=== PATIENT | female | born 1995 | race Caucasian/White ===

== ENCOUNTER 2019-07-03 11:31 | Emergency (ER) | payer OTHER ==
[~2019-07-03] VITALS: Ht 162.6 cm; Wt 88.6 kg
[2019-07-03 11:31] VITALS: BP 144/89
[2019-07-03] MEDS ORDERED: BACT800T5 PO (12:28)
[2019-07-03] MEDS ORDERED: PYRI1TAB5 PO (12:28)
== END 2019-07-03 12:35 | disposition home or self-care (01) ==
LOC: M ED 11:31
DX: N39.0 Urinary tract infection, site not specified (principal)

== ENCOUNTER 2019-09-07 11:53 | Emergency (ER) | payer OTHER, SELFPAY ==
[~2019-09-07] VITALS: Ht 162.6 cm; Wt 93.1 kg
[~2019-09-07 11:53] MED LIST: BACT800T5 PO; PYRI1TAB5 PO
[2019-09-07] MEDS ORDERED: cbd gummies (11:59)
[2019-09-07 13:05] LABS: BASO % 0.6 % (0.0-1.0); EOS # 0.1 10^3/uL (0.0-0.5); EOS % 1.5 % (0.0-3.0); HEMATOCRIT 39.8 % (36.0-47.0); HEMOGLOBIN 13.2 g/dl (12.0-15.5); LYMPH # 1.5 10^3/uL (1.5-5.0); LYMPH % 20.6 % (24.0-44.0); MEAN CORPUSCULAR HEMOGLOBIN 30.2 pg (27.0-33.0); MEAN CORPUSCULAR HGB CONC 33.2 g/dl (32.0-36.5); MEAN CORPUSCULAR VOLUME 91.1 fl (80.0-96.0); MONO # 0.3 10^3/uL (0.0-0.8); NEUTROPHILS # 5.3 10^3/uL (1.5-8.5); PLATELET COUNT, AUTOMATED 301 10^3/uL (150-450); RED BLOOD COUNT 4.37 10^6/uL (4.00-5.40); WHITE BLOOD COUNT 7.2 10^3/uL (4.0-10.0)
[2019-09-07 13:21] LABS: BILIRUBIN,DIRECT 0.1 MG/DL (0.0-0.2); BILIRUBIN,TOTAL 0.5 MG/DL (0.2-1.0); TOTAL PROTEIN 7.4 GM/DL (6.4-8.2)
[2019-09-07 14:20] VITALS: BP 126/81
== END 2019-09-07 14:22 | disposition home or self-care (01) ==
LOC: M ED 11:53
DX: Z32.00 Encounter for pregnancy test, result unknown (principal); R11.2 Nausea with vomiting, unspecified; F43.10 Post-traumatic stress disorder, unspecified; Z87.42 Personal history of other diseases of the female genital tract

== ENCOUNTER → 2019-09-09 | Outpatient (CLI) | payer MEDICAID, SELFPAY ==
[~2019-09-09] MED LIST changes: +cbd gummies
== END ==
LOC: M LAB 11:37
PROVIDERS: ATTEND Obstetrics & Gynecology
DX: Z34.90 Encounter for supervision of normal pregnancy, unspecified, unspecified trimester (principal)

== ENCOUNTER → 2019-10-02 | Outpatient (REF) | payer OTHER ==
[2019-10-02 13:24] LABS: HEMATOCRIT 36.7 % (36.0-47.0); HEMOGLOBIN 12.3 g/dl (12.0-15.5); MEAN CORPUSCULAR HEMOGLOBIN 30.4 pg (27.0-33.0); MEAN CORPUSCULAR HGB CONC 33.5 g/dl (32.0-36.5); MEAN CORPUSCULAR VOLUME 90.8 fl (80.0-96.0); PLATELET COUNT, AUTOMATED 269 10^3/uL (150-450); RED BLOOD COUNT 4.04 10^6/uL (4.00-5.40); WHITE BLOOD COUNT 7.2 10^3/uL (4.0-10.0)
[2019-10-02 13:54] LABS: ALT/SGPT 19 U/L (12-78); BILIRUBIN,TOTAL 0.6 MG/DL (0.2-1.0); CREATININE FOR GFR 0.61 MG/DL (0.55-1.30); GLOMERULAR FILTRATION RATE > 60.0 (>60); LDH LACTATE DEHYDROGENASE 132 U/L (84-246); TOTAL PROTEIN,RANDOM URINE 17.1 MG/DL (0.0-12.0); URIC ACID 3.1 MG/DL (2.6-6.0)
[2019-10-02 14:15] LABS: RUBELLA IgG QUALITATIVE IMMUNE (IMMUNE)
[2019-10-02 14:16] LABS: HEPATITIS B SURFACE ANTIGEN NEGATIVE (NEGATIVE)
[2019-10-02 14:43] LABS: HEPATITIS C VIRUS ABY INDEX 0.2 INDEX (<0.8)
[2019-10-02 14:44] LABS: HIV 1&2 SCREEN CENTAUR NEGATIVE (NEGATIVE)
== END ==
LOC: M PLALAB 09:17
PROVIDERS: ATTEND Obstetrics & Gynecology
DX: O09.291 Supervision of pregnancy with other poor reproductive or obstetric history, first trimester (principal)

== ENCOUNTER 2019-10-24 14:49 | Emergency (ER) | payer OTHER ==
[~2019-10-24] VITALS: Ht 162.6 cm; Wt 95.7 kg
[2019-10-24] MEDS ORDERED: PREN29TA4 PO (15:01)
[2019-10-24] MEDS ORDERED: PENI1TAB17 (15:01)
[2019-10-24] MEDS ORDERED: AZO1CAP2 PO (15:01)
[2019-10-24] MEDS ORDERED: MACR100C43 PO (16:38)
[2019-10-24 16:46] VITALS: BP 116/76
[2019-10-24 17:22] LABS: CHLAMYDIA DNA AMPLIFICATION NEGATIVE (NEGATIVE); GC DNA AMPLIFICATION NEGATIVE (NEGATIVE)
== END 2019-10-24 16:57 | disposition home or self-care (01) ==
LOC: M ED 14:49
DX: O23.41 Unspecified infection of urinary tract in pregnancy, first trimester (principal); Z3A.10 10 weeks gestation of pregnancy; R10.2 Pelvic and perineal pain

== ENCOUNTER → 2019-11-14 | Outpatient (CLI) | payer OTHER ==
[~2019-11-14] MED LIST changes: +AZO1CAP2 PO; +MACR100C43 PO; +PENI1TAB17; +PREN29TA4 PO
== END ==
LOC: M PLALAB 15:18
PROVIDERS: ATTEND Advanced Practice Midwife
DX: Z13.79 Encounter for other screening for genetic and chromosomal anomalies (principal)

== ENCOUNTER → 2020-01-17 | Outpatient (CLI) | payer OTHER ==
--- NOTE | 2020-01-17 15:28 | REP ---
REASON: anatomy. There are no priors for comparison. Multiple ultrasonographic images of the gravid uterus show a single living intrauterine gestation in the cephalic presentation. Doppler interrogation of the heart shows a heart rate of 149 beats per minute. The placenta is posterior and not low-lying. The subjective amniotic fluid volume is within normal limits. The cervix measures 3.6 cm in length and is closed. Evaluation of the maternal adnexal spaces should no abnormalities. BPD 5 cm = 21 weeks 1 day HC 19.9 cm = 22 weeks 0 days AC 17.2 cm = 23 weeks 1 day FL 4.0 cm = 22 weeks 6 days The estimated weight is 500 grams, which is at the 58th percentile for a 50-zyjn-6-day gestational age. anatomical structures seen to be within normal limits are as follows: Thalami, cavum septum pellucidum, cerebellum, cisterna magna, cerebral ventricles, upper lip, four-chamber heart, ventricular outflow tracts, stomach, cord insertion, three-vessel umbilical cord, kidneys, bladder, spine, upper and lower extremities. IMPRESSION: Single living intrauterine gestation as described above with an estimated gestational age of 22 weeks 0 days via composite criteria and an estimated date of delivery of 05/22/2020 by today's exam. No anomalies were detected.
[2020-01-17 20:43] LABS: CHLAMYDIA DNA AMPLIFICATION NEGATIVE (NEGATIVE); GC DNA AMPLIFICATION NEGATIVE (NEGATIVE)
== END ==
LOC: M WHC 08:21
PROVIDERS: ATTEND Advanced Practice Midwife
DX: O09.299 Supervision of pregnancy with other poor reproductive or obstetric history, unspecified trimester (principal); Z3A.22 22 weeks gestation of pregnancy

== ENCOUNTER 2020-02-16 11:11 | Emergency (ER) | payer OTHER ==
[2020-02-16] MEDS ORDERED: NORCO, ANEXSIA 5/325MG TABLET (HYDROcodone/ACETAMINOPHEN) As Ordered ONE ×2 (12:08→12:53)
== END 2020-02-16 13:55 | disposition home or self-care (01) ==
LOC: M ED 11:11
DX: O9A.212 Injury, poisoning and certain other consequences of external causes complicating pregnancy, second trimester (principal); S83.005A Unspecified dislocation of left patella, initial encounter; W01.0XXA Fall on same level from slipping, tripping and stumbling without subsequent striking against object, initial encounter; Y99.0 Civilian activity done for income or pay; Z3A.26 26 weeks gestation of pregnancy; Z79.899 Other long term (current) drug therapy

== ENCOUNTER → 2020-03-19 | Outpatient (CLI) | payer OTHER ==
[2020-03-19 15:25] LABS: HEMATOCRIT 30.9 % (36.0-47.0); HEMOGLOBIN 10.3 g/dl (12.0-15.5); MEAN CORPUSCULAR HEMOGLOBIN 29.9 pg (27.0-33.0); MEAN CORPUSCULAR HGB CONC 33.3 g/dl (32.0-36.5); MEAN CORPUSCULAR VOLUME 89.6 fl (80.0-96.0); PLATELET COUNT, AUTOMATED 221 10^3/uL (150-450); RED BLOOD COUNT 3.45 10^6/uL (4.00-5.40)
== END ==
LOC: M PLALAB 11:08
PROVIDERS: ATTEND Advanced Practice Midwife
DX: Z34.93 Encounter for supervision of normal pregnancy, unspecified, third trimester (principal); Z3A.00 Weeks of gestation of pregnancy not specified

== ENCOUNTER 2020-04-02 00:13 | Outpatient (CLI) | payer OTHER | END 2020-04-02 01:15 | disposition home or self-care (01) | LOC: M LDO 00:13 | PROVIDERS: ATTEND Advanced Practice Midwife | DX: O26.893 Other specified pregnancy related conditions, third trimester (principal); Z3A.32 32 weeks gestation of pregnancy ==

== ENCOUNTER 2020-08-27 07:45 | Outpatient (RCR) | payer OTHER | END 2020-08-30 | LOC: M PT 07:45 | PROVIDERS: ATTEND Orthopaedic Surgery Sports Medicine | DX: S83.005D Unspecified dislocation of left patella, subsequent encounter (principal) ==

== ENCOUNTER 2020-09-15 07:45 | Outpatient (RCR) | payer OTHER | END 2020-09-30 | LOC: M PT 07:45 | PROVIDERS: ATTEND Orthopaedic Surgery Sports Medicine | DX: S83.005D Unspecified dislocation of left patella, subsequent encounter (principal) ==

== ENCOUNTER → 2020-10-25 | Outpatient (CLI) | payer OTHER ==
[~2020-10-25] MED LIST changes: +COLA100C5 PO; +IBUP1TAB7 PO; +OXYC1TAB23 PO
== END ==
LOC: M LABSMTC 08:46
PROVIDERS: ATTEND Anesthesiology
DX: Z01.812 Encounter for preprocedural laboratory examination (principal)

== ENCOUNTER 2020-10-30 13:42 | Day surgery (SDC) | payer OTHER ==
[~2020-10-30] VITALS: Ht 162.6 cm; Wt 117.4 kg
[~2020-10-30 13:42] MED LIST changes: -COLA100C5 PO; -IBUP1TAB7 PO; +LIDOCAINE 1% MDV 20ML VIAL SQ PRN; +LR 1,000 ML IV ONE; -OXYC1TAB23 PO
[2020-10-30 14:20] LABS: HEMATOCRIT 39.4 % (36.0-47.0); HEMOGLOBIN 12.7 g/dl (12.0-15.5); MEAN CORPUSCULAR HEMOGLOBIN 28.7 pg (27.0-33.0); MEAN CORPUSCULAR HGB CONC 32.2 g/dl (32.0-36.5); MEAN CORPUSCULAR VOLUME 89.1 fl (80.0-96.0); PLATELET COUNT, AUTOMATED 308 10^3/uL (150-450); RED BLOOD COUNT 4.42 10^6/uL (4.00-5.40); WHITE BLOOD COUNT 6.9 10^3/uL (4.0-10.0)
[2020-10-30] MEDS ORDERED: KETOROLAC 60MG 2ML VIAL As Ordered ONE (14:27)
[2020-10-30] MEDS ORDERED: propofoL 200 MG/20 ML VIAL As Ordered ONE (14:27)
[2020-10-30] MEDS ORDERED: ONDANSETRON 4MG/2ML VIAL As Ordered ONE (14:27)
[2020-10-30] MEDS ORDERED: MIDAZOLAM INJ 2MG/2ML VIAL (J2250 PER 1MG) As Ordered ONE (14:27)
[2020-10-30] MEDS ORDERED: fentaNYL 100 MCG/2 ML INJECTION (J3010) As Ordered ONE ×3 (14:27→17:21)
[2020-10-30] MEDS ORDERED: LIDOCAINE 2% 100MG/5ML SDV (FOR ANES.) As Ordered ONE (14:27)
[2020-10-30] MEDS ORDERED: ROCURONIUM BROMIDE 50 MG/5 ML VIAL As Ordered ONE (14:27)
[2020-10-30] MEDS ORDERED: ACETAMINOPHEN 1000MG 100ML IV BTL (OFIRMEV) (J0131 PER 10MG) As Ordered ONE (14:27)
[2020-10-30] MEDS ORDERED: dexameTHASONE 4 MG/ML 1ML VIAL (J1100 PER 1MG) As Ordered ONE ×2 (14:27→14:28)
[2020-10-30] MEDS ORDERED: SUGAMMADEX SODIUM 500 MG/5 ML VIAL (BRIDION) As Ordered ONE (14:27)
[2020-10-30 14:44] LABS: HCG, SERUM QUALITATIVE NEGATIVE (NEGATIVE)
[2020-10-30] MEDS ORDERED: BUPIVACAINE HCL 0.25% 10ML VIAL As Ordered ONE (15:21)
[2020-10-30] MEDS ORDERED: OXYC1TAB23 PO (17:02)
--- NOTE | 2020-10-30 17:02 | ROOPDOC ---
[facility] Report Of Operation Report of Operation Date of procedure: 10/30/2020 Preoperative diagnosis: Satisfied parity. Postoperative diagnosis: Same Procedure: Laparoscopic bilateral salpingectomy Anesthesia: Gen. endotracheal Estimated blood loss 5 mL IV fluids replaced 1000 mL lactated Ringer's Drains: In and out catheter 25 mL of urine Complications: None Preoperative antibiotics: None indicated Specimens: Bilateral fallopian tubes Intraoperative findings: Normal size, shape, contour of the uterus. Normal adnexa/ovaries bilaterally. Procedure: The patient was counseled and consented on the risks, benefits, indications, and alternatives of the procedure. Informed consent was obtained. She was taken to the operating room with an IV running. She was placed on the operating table in the dorsal supine position. Gen. anesthesia was administered and the airway was secured without any difficulty. A timeout was performed per protocol. She was prepared and draped in the normal sterile fashion. Attention was turned to the pelvis. The bladder was drained with in and out sterile catheter. A speculum was placed into the vagina with good visualization of the cervix. A single- tooth tenaculum was placed on the anterior lip of the cervix and downward traction was applied. The cervix was sequentially dilated with Juan dilators up to a #16. A ZUMI uterine manipulator was placed without any difficulty. The single-tooth tenaculum was removed. The tenaculum sites were noted to be hemostatic. A sterile glove switch was performed. Attention was turned to the abdomen. A 5mm umbilical incision was made with the 11 blade. Through this incision, a Veress needle was placed into the intraperitoneal cavity. Intraperitoneal placement was confirmed with ease of flow of normal saline, a positive drop test and no return on aspiration. The opening pressure was 2 mmHg. The abdomen was insufflated with 2 L of CO2. The Veress needle was removed. A 5 mm laparoscopic trocar was placed under direct visualization without any difficulty, and intraperitoneal placement was confirmed. No incidental bleeding or injury was evident. The patient was placed in steep Trendelenburg. 2 additional laparoscopic port sites were placed through 5 mm incisions in the lower left quadrant. Each trocar/cannula was placed under direct visualization without any difficulty, incidental bleeding or injury. Attention was turned to the right fallopian tube. The right fallopian tube was followed out to the fimbriated end, grasped and elevated. The underlying mesosalpinx was sequentially clamped, coagulated and transected, until the level of the cornu was reached. At this level, the fallopian tube was clamped, coagulated and transected, thus amputating the fallopian tube. The fallopian tube was brought through the cannula without any difficulty and sent to pathology for permanent section. Attention was turned to the left fallopian tube. The left fallopian tube was followed out to the fimbriated end, grasped and elevated. The underlying mesosalpinx was sequentially clamped, coagulated and transected, until the level of the cornu was reached. At this level the fallopian tube was clamped, coagulated and transected, thus amputating the fallopian tube. The fallopian tube was brought to the cannula without any difficulty and sent to pathology for permanent section. Both right and left surgical sites were noted to be completely hemostatic. The gas was released from the abdomen. The patient was taken out of Trendelenburg position. The cannulas were removed. The skin incisions were closed with 4-0 Monocryl in subcuticular fashion and reinforced with Dermabond. The uterine manipulator was removed, the vagina was noted to be clear of any sponge or instrument. Sponge, needle and instrument counts were correct per protocol. The patient tolerated the entire procedure very well. She was transferred to the PACU in good and stable condition. DO MILKA Eaton JONATHAN R. DO Oct 30, 2020 17:02
[2020-10-30] MEDS ORDERED: IBUP1TAB7 PO (17:03)
[2020-10-30] MEDS ORDERED: COLA100C5 PO (17:04)
[2020-10-30] MEDS: fentaNYL 100 MCG/2 ML INJECTION (J3010) IV PRN ×2 (17:22→17:27)
[2020-10-30] MEDS ORDERED: LR 1,000 ML IV SCH ×2 (17:40→17:50)
[2020-10-30] MEDS ORDERED: METOCLOPRAMIDE INJ 10MG/2ML VIAL (J2765 PER 1) IV PRN (17:50)
[2020-10-30] MEDS ORDERED: oxyCODONE 5MG TAB PO PRN (17:50)
[2020-10-30] MEDS ORDERED: ONDANSETRON 4MG/2ML VIAL IV PRN (17:50)
[2020-10-30] MEDS ORDERED: HYDROMORPHONE HCL 0.5 MG/ 0.5 ML SYRINGE (J1170 PER 1) IV PRN (17:50)
[2020-10-30 19:30] VITALS: BP 111/71
== END 2020-10-30 19:35 | disposition home or self-care (01) ==
LOC: M SDC 13:42
PROVIDERS: ATTEND Obstetrics & Gynecology
DX: Z30.2 Encounter for sterilization (principal); Z79.899 Other long term (current) drug therapy
CPT/HCPCS: 36415; 58661; 84703; 85027; 86850; 86900; 86901; 88302; J0131; J1100; J1885; J2250; J2405; J3010

== ENCOUNTER 2021-05-09 13:35 | Emergency (ER) | payer OTHER ==
[~2021-05-09] VITALS: Ht 162.6 cm; Wt 129.6 kg
[~2021-05-09 13:35] MED LIST changes: +COLA100C5 PO; +IBUP1TAB7 PO; -LIDOCAINE 1% MDV 20ML VIAL SQ PRN; -LR 1,000 ML IV ONE; +OXYC1TAB23 PO
[2021-05-09] MEDS ORDERED: AZO-95TA3 PO (13:39)
--- OUTSIDE RECORDS SUMMARY | 2021-05-09 13:53 | CCD ---
Author Author [facility] Organization [facility] Address Unknown Phone Unavailable Care Team Providers Care Pilot Fuel Engineer Name Role Phone NO, PCP Unavailable Unavailable MD EZEKIEL LARRY Unavailable Unavailable MD CHICHI LARRYAH Unavailable Unavailable MD EZEKIEL LARRY Unavailable Unavailable MD EZEKIEL LARRY Unavailable Unavailable MD CHICHI LARRYAH Unavailable Unavailable MD CHICHI LARRYAH Unavailable Unavailable MD CHICHI LARRYAH Unavailable Unavailable MD CHICHI LARRYAH Unavailable Unavailable MD CHICHI LARRYAH Unavailable Unavailable MD CHICHI LARRYAH Unavailable Unavailable MD EZEKIEL LARRY Unavailable Unavailable MD EZEKIEL LARRY Unavailable Unavailable MD EZEKIEL LARRY Unavailable Unavailable MD EZEKIEL LARRY Unavailable Unavailable MD EZEKIEL LARRY Unavailable Unavailable MD EZEKIEL LARRY Unavailable Unavailable MD EZEKIEL LARRY Unavailable Unavailable MD EZEKIEL LARRY Unavailable Unavailable MD EZEKIEL LARRY Unavailable Unavailable MD EZEKIEL LARRY Unavailable Unavailable MD EZEKIEL LARRY Unavailable Unavailable MD CHICHI LARRYAH Unavailable Unavailable MD CHICHI LARRYAH Unavailable Unavailable MD CHICHI LARRYAH Unavailable Unavailable MD EZEKIEL LARRY Unavailable Unavailable MD CHICHI LARRYAH Unavailable Unavailable MD CHICHI LARRYAH Unavailable Unavailable MD CHICHI LARRYAH Unavailable Unavailable MD CHICHI LARRYAH Unavailable Unavailable Mollison, Anaya Rosado MD Unavailable Unavailable Mollison, Anaya Rosado MD Unavailable Unavailable Mollison, Anaya Rosado MD Unavailable Unavailable Mollison, Anaya Rosado MD Unavailable Unavailable Mollison, Anaya oRsado MD Unavailable Unavailable Mollison, Anaya Rosado MD Unavailable Unavailable Mollison, Anaya Rosado MD Unavailable Unavailable Mollison, Anaya Rosado MD Unavailable Unavailable Mollison, Anaya Rosado MD Unavailable Unavailable Mollison, Anaya Rosado MD Unavailable Unavailable Mollison, Anaya Rosado MD Unavailable Unavailable Mollison, Anaya Rosado MD Unavailable Unavailable Mollison, Anaya Rosado MD Unavailable Unavailable Mollison, Anaya Rosado MD Unavailable Unavailable Mollison, Anaya Rosado MD Unavailable Unavailable Mollison, Anaya Rosado MD Unavailable Unavailable Mollison, Anaya Rosado MD Unavailable Unavailable Mollison, Anaya Rosado MD Unavailable Unavailable Mollison, Anaya Rosado MD Unavailable Unavailable Mollison, Anaya Rosado MD Unavailable Unavailable Mollison, Anaya Rosado MD Unavailable Unavailable Mollison, Anaya Rosado MD Unavailable Unavailable MollisonAnaya MD Unavailable Unavailable Mollison, Anaya Rosado MD Unavailable Unavailable Mollison, Anaya Rosado MD Unavailable Unavailable MollisonAnaya MD Unavailable Unavailable Mollison, Anaya Rosado MD Unavailable Unavailable Mollison, Anaya Rosado MD Unavailable Unavailable Mollison, Anaya Rosado MD Unavailable Unavailable Mollison, Anaya Rosado MD Unavailable Unavailable Abel CARRINGTON Unavailable Unavailable MD CHICHI LARRYAH Unavailable Unavailable MD EZEKIEL LARRY Unavailable Unavailable MD EZEKIEL LARRY Unavailable Unavailable MD CHICHI LARRYAH Unavailable Unavailable MD CHICHI LARRYAH Unavailable Unavailable MD CHICHI LARRYAH Unavailable Unavailable MD CHICHI LARRYAH Unavailable Unavailable MD CHICHI LARRYAH Unavailable Unavailable MD CHICHI LARRYAH Unavailable Unavailable MD EZEKIEL LARRY Unavailable Unavailable MD CHICHI LARRYAH Unavailable Unavailable MD CHICHI LARRYAH Unavailable Unavailable MD CHICHI LARRYAH Unavailable Unavailable MD CHICHI LARRYAH Unavailable Unavailable MD EZEKIEL LARRY Unavailable Unavailable MD CHICHI LARRYAH Unavailable Unavailable MD EZEKIEL LARRY Unavailable Unavailable MD EZEKIEL LARRY Unavailable Unavailable MD CHICHI LARRYAH Unavailable Unavailable MD CHICHI LARRYAH Unavailable Unavailable MD CHICHI LARRYAH Unavailable Unavailable MD CHICHI LARRYAH Unavailable Unavailable MD EZEKIEL LARRY Unavailable Unavailable MD EZEKIEL LARRY Unavailable Unavailable MD EZEKIEL LARRY Unavailable Unavailable MD EZEKIEL LARRY Unavailable Unavailable MD EZEKIEL LARRY Unavailable Unavailable MD EZEKIEL LARRY Unavailable Unavailable MD EZEKIEL LARRY Unavailable Unavailable GINYARD, Shobha LEWIS MD Unavailable Unavailable GINYARD, Shobha LEWIS MD Unavailable Unavailable GINYARD, Shobha LEWIS MD Unavailable Unavailable GINYARD, Shobha LEWIS MD Unavailable Unavailable GINYARD, Shobha LEWIS MD Unavailable Unavailable GINYARD, Shobha LEWIS MD Unavailable Unavailable GINYARD, Shobha LEWIS MD Unavailable Unavailable GINYARD, Shobha LEWIS MD Unavailable Unavailable GINYARD, Shobha LEWIS MD Unavailable Unavailable GINYARD, Shobha LEWIS MD Unavailable Unavailable GINYARD, Shobha LEWIS MD Unavailable Unavailable GINYARD, Shobha LEWIS MD Unavailable Unavailable GINYARD, Shobha LEWIS MD Unavailable Unavailable GINYARD, Shobha LEWIS MD Unavailable Unavailable GINYARD, Shobha LEWIS MD Unavailable Unavailable GINYARD, Shobha LEWIS MD Unavailable Unavailable GINYARD, Shobha LEWIS MD Unavailable Unavailable GINYARD, Shobha LEIWS MD Unavailable Unavailable GINYARD, Shobha LEWIS MD Unavailable Unavailable GINYARD, Shobha LEWIS MD Unavailable Unavailable GINYARD, Shobha LEWIS MD Unavailable Unavailable GINYARD, Shobha LEWIS MD Unavailable Unavailable GINYARD, Shobha LEWIS MD Unavailable Unavailable GINYARD, Shobha LEWIS MD Unavailable Unavailable GINYARD, Shobha LEWIS MD Unavailable Unavailable GINYARD, Shobha LEWIS MD Unavailable Unavailable Re-disclosure Warning The records that you are about to access may contain information from federally-assisted alcohol or drug abuse programs. If such information is present, then the following federally mandated warning applies: This information has been disclosed to you from records protected by federal confidentiality rules (42 CFR part 2). The federal rules prohibit you from making any further disclosure of this information unless further disclosure is expressly permitted by the written consent of the person to whom it pertains or as otherwise permitted by 42 CFR part 2. A general authorization for the release of medical or other information is NOT sufficient for this purpose. The Federal rules restrict any use of the information to criminally investigate or prosecute any alcohol or drug abuse patient.The records that you are about to access may contain highly sensitive health information, the redisclosure of which is protected by Article 27-F of the [facility] Public Health law. If you continue you may have access to information: Regarding HIV / AIDS; Provided by facilities licensed or operated by the [facility] Office of Mental Health; or Provided by the [facility] Office for People With Developmental Disabilities. If such information is present, then the following [facility] mandated warning applies: This information has been disclosed to you from confidential records which are protected by state law. State law prohibits you from making any further disclosure of this information without the specific written consent of the person to whom it pertains, or as otherwise permitted by law. Any unauthorized further disclosure in violation of state law may result in a fine or [place] health [facility] sentence or both. A general authorization for the release of medical or other information is NOT sufficient authorization for further disc losure. Allergies and Adverse Reactions Type Description Substance Reaction Status Data Source(s ) No Known Drug Allergies No Known Drug Allergies [facility] Hospital Encounters Encounter Providers Location Date Indications Data Source(s ) Outpatient Attender: Alonzo Blanco/Gael/Satish/Re indl 01/08/2021 03:30:00 PM EDT [facility] ([facility]) Outpatient [address] [facility] [id number] 10/14/2020 12:00:00 AM EDT eCW1 ([facility]) Unknown [address] [facility] [address] 09/11/2020 12:00:00 AM EST eCW1 ([facility]) Outpatient Attender: Alonzo Blanco/Gael/Satish/Re indl 08/25/2020 02:00:00 PM EST [facility] ([facility]) Outpatient Attender: Alonzo Blanco/Gael/Satish/Re indl 07/20/2020 07:30:00 AM EST [facility] ([facility]) ([facility]) [facility] Est OB [address] [place] [address] 07/13/2020 12:00:00 AM EST eCW1 ([facility] hospital) Inpatient Attender: MD EZEKIEL LARRY 04/11/2020 09:34:47 P M EDT [facility] [place] [facility] Inpatient Attender: MD EZEKIEL LARRYAdmitter: MD EZEKIEL GRAVES 04/11/2020 08:27:00 PM EDT - 04/15/2020 12:31:00 PM EDT PRE-ECLAMPSIA W/SEVERE FEATURES [facility] PRE-ECLAMPSIA W/SEVERE FEATURES Patient discharged. Outpatient Attender: MD EZEKIEL LARRY 04/11/2020 08:27:00 P M EDT [facility] Outpatient Attender: DEBBIE ERVIN MDConsultant: PCP NO 04/06/2020 01:38:00 PM EDT - 04/06/2020 03:50:00 PM EDT [facility] Patient discharged. Outpatient Attender: ARTHUR CARRINGTONConsultant: PCP NO 03/03/2020 12:35:00 AM EDT - 03/03/2020 03:13:00 AM EDT [facility] Patient discharged. Medications Medication Brand Name Start Date Product Form Dose Route Admi nistrative Instructions Pharmacy Instructions Status Indications Reaction Description Data Source(s) No Active Medications 01/08/2021 12:00:00 AM EDT completed [facility] ([facility]) 600 mg 04/15/2020 12:00:00 AM EDT tablet 60 TAKE ONE TABLET BY MOUTH EVERY 6 HOURS TAKE ONE TABLET BY MOUTH EVERY 6 HOURS SOLD: 04/15/2020 [facility] 100 mg 04/15/2020 12:00:00 AM EDT capsule 60 TAKE ONE CAPSULE BY MOUTH TWICE A DAY NEEDED FOR CONSTIPATION TAKE ONE CAPSULE BY MOUTH TWICE A DAY NEEDED FOR CONSTIPATION SOLD: 04/15/2020 [facility] 80 mg 04/15/2020 12:00:00 AM EDT tablet,chewable 60 CHEW ONE TABLET BY MOUTH THREE TIMES A DAY DURING MEAL CHEW ONE TABLET BY MOUTH THREE TIMES A D AY DURING MEAL SOLD: 04/15/2020 [facility] 500 mg 04/15/2020 12:00:00 AM EDT tablet 60 TAKE ONE TABLET BY MOUTH TWICE A DAY TAKE ONE TABLET BY MOUTH TWICE A DAY SOLD: 04/15/2020 [facility] 324 mg (65 mg iron) 04/15/2020 12:00:00 AM EDT tablet, delayed release (DR/EC) 90 TAKE ONE TABLET BY MOUTH THREE TIMES A D AY DURING A MEAL TAKE ONE TABLET BY MOUTH THREE TIMES A DAY DURING A MEAL SOLD: 04/15/2020 [facility] 0.35 mg 04/15/2020 12:00:00 AM EDT tablet 28 TAKE ONE TABLET BY MOUTH EVERY DAY TAKE ONE TABLET BY MOUTH EVERY DAY SOLD: 04/15/2020 [facility] 325 mg 04/15/2020 12:00:00 AM EDT tablet 60 TAKE THREE TABLETS BY MOUTH EVERY 6 HOURS NEEDED FOR PAIN TAKE THREE TABLETS BY MOUTH EVERY 6 HOUR S NEEDED FOR PAIN SOLD: 04/15/2020 [facility] Insurance Providers Payer name Policy type / Coverage type Policy ID Covered libertarian ID Covered libertarian's relationship to jeff Policy Jeff Plan Information CORBIN [id number] SP [id number] [place] [id number] SP [id number] MEMIC [place] 2010 SP 2010 ONE CALL CARE MANAGEMENT O [id number] S [id number] CORBIN I [id number] Self [id number] MEDICAID GME [id number] S [id number] CORBIN CARE HEA [id number] S [id number] [place]ARE [place] -OP [id number] 18 [id number] [place] [id number] SP [id number] [place] CARE [place] O [id number] S [id number] Managed Care [place] P UNAVAILABLE S UNAVAILABLE Medicaid S UNAVAILABLE S UNAVAILA BLE D Managed Care Why ([employer]) O UNAVAILABLE S UNAVAILABLE Medicaid Dental O UNAVAILABLE S UN AVAILABLE MEDICAID [id number] SP [id number] SELF PAY ONLY [id number] SP [id number] NCO EPALS [id number] SP [id number] Problems, Conditions, and Diagnoses Code Display Name Description Problem Type Effective Dates Data Source(s) [id number] 33 weeks gestation of 33 weeks gestation of Diagnosis 04/06/2020 01:38:00 PM EDT [facility] R519 Invalid ICD10 Description Invalid ICD10 Description Di agnosis 04/06/2020 01:38:00 PM EDT [facility] Surgeries/Procedures Procedure Description Date Indications Data Source(s) OFFICE OUTPATIENT VISIT 15 MINUTES 01/08/2021 12:00:00 AM EDT [facility] ([facility]) OFFICE OUTPATIENT VISIT 25 MINUTES 01/08/2021 12:00:00 AM EDT [facility] ([facility]) OFFICE OUTPATIENT VISIT 25 MINUTES 12/07/2020 12:00:00 AM EDT [facility] ([facility]) OFFICE OUTPATIENT VISIT 15 MINUTES 08/25/2020 12:00:00 AM EST [facility] ([facility]) OFFICE OUTPATIENT VISIT 15 MINUTES 07/20/2020 12:00:00 AM EST [facility] ([facility]) Results ID Date Data Source [id number] 10/25/2020 08:45:00 AM EDT [facility] Name Value Range Interpretation Code Description Data Camila rce(s) Supporting Document(s) SARS-CoV-2 (COVID-19) RNA [Presence] in Respiratory specimen by SOFI with probe detection Not Detected [facility] This lab was ordered by [facility] and reported by [facility]. ID Date Data Source [id number] 09/01/2020 04:15:00 PM EST [facility] Name Value Range Interpretation Code Description Data Camila rce(s) Supporting Document(s) SARS-CoV-2 NEGATIVE [facility] This lab was ordered by [facility] and reported by [facility]. ID Date Data Source [id number] 09/01/2020 12:00:00 AM EST [facility] Name Value Range Interpretation Code Description Data Camila rce(s) Supporting Document(s) SARS-CoV-2 RT-PCR negative [facility] This lab was ordered by [facility] and re ported by [facility]. ID Date Data Source [id number] 08/17/2020 12:00:00 AM EST [facility] Alonzo Ness MD Patient Name: GINI WYNNY[address] [facility] Date of : 1995[address] Date of Exam: 08/17/2020MOISE Smith [address]QN#: [phone]: EXAM: MRI KNEE LEFT WITHOUT CONTRASTCLINICAL INFORMATION: Prior patellar dislocation with possible loose bodyin the left knee.COMPARISON: X-ray 02/16/2020.Accredited by the [employer] in MR.TECHNIQUE: Osman nal PD and SPIR/MTC, sagittal PD and T2 SPIR and an axialSPIR/MTC sequence are performed.FINDINGS: Both the ACL and PCL show intact fibers along their course withno definite evidence for a tear. A small amount of fluid in theintercondylar notch and throughout the joint noted. Findings represent asmall joint effusion. There is some edema and trace fluid posterior to theposterior horn and deep to the capsule around the medial meniscus on thesagittal images. This may reflect a mild meniscocapsular injury. I do notsee linear intrasubstance signal tear in the medial meniscus, or a definiteloose body in the medial compartment. There is some minimal grade 1chondromalacia with surface fraying of the articular cartilage. Nosubjacent subchondral edema or bone bruise in the medial compartment.Medial collateral ligamentous complex without a definite tear. There isonly trace fluid about the medial head of the gastrocnemius in thepopliteal fossa. Some strain and attenuation of the lateral patellaretinaculum with increased signal superficial to it and within it. There isno subluxation of the patella. There is an elongated lateral patellar facetand some chondromalacia grade 2 lateral and medial facets. I do not see adefinite patellar fracture. There is a shallow trochlea and steeplyoriented medial patellar facet which may predispose to lateral subluxation.There is a small suprapatellar effusion and fluid into both medial andlateral bursal recessed about the femoral condyles. Synovial plica issuggested laterally and only trace fluid in the joint at the suprapatellarbursa. The lateral meniscus shows no definite tear communicating fromarticular surface nor intraarticular loose body in the lateral jointcompartment. Some grade 1 chondromalacia of the lateral compartment but noadjacent bone fracture line but some edema in the lateral aspect femoralcondyle and more medial aspect of the lateral tibial plateau. The proximalpatellofemoral joint was unremarkable. The popliteus tendon was intact.The patella and quadriceps tendons showed no signal abnormality.IMPRESSION:1. Marrow edema representing bone bruise lateral femoral condyle and tibialplateau subjacent to the cortical margin. No loose body or visible meniscaltear laterally. The lateral collateral ligamentous complex and patellarretinaculum were intact.2. Strain and some attenuation of the medial patellar retinaculum. Medialcollateral ligamentous complex intact.3. Suprapatellar effusion with chondromalacia of the patella grade 2 andgrade 3 lateral facet grade 2 medial facet. Patella configuration is a typethat favors lateral subluxation.4. Some mild meniscocapsular injury suggested about the medial meniscuswithout tear communicating to an articular surface or loose body. Tracefluid adjacent to the gastrocnemius tendon in the popliteal fossa.5. Cruc iate ligaments grossly intact. Small joint effusion. No loose body.Accredited by the [employer] in MR.Pancho Guaman, MDPArlineL/slmTdoris you for referring MELISA WYNN to our office. Electronically Signed - PANCHO GUAMAN MD 08/18/20 8:24 Name Value Range Interpretation Code Description Data Camila rce(s) Supporting Document(s) ID Date Data Source [id number] 04/15/2020 06:16:55 AM EDT [facility] [place] thania DENNEY Name Value Range Interpretation Code Description Data Camila rce(s) Supporting Document(s) URIC ACID 4.2 mg/dL (2.6-6.0) [facility] [place] [facility] ID Date Data Source [id number] 04/15/2020 06:16:55 AM EDT [facility] [place] [facility] Name Value Range Interpretation Code Description Data Camila rce(s) Supporting Document(s) LDH 156 U/L (84-246) [facility] [place] [facility] ID Date Data Source [id number] 04/15/2020 06:16:55 AM EDT [facility] [place] [facility] Name Value Range Interpretation Code Description Data Camila rce(s) Supporting Document(s) SODIUM 143 mmol/L (136-145) [facility] [place] [facility] POTASSIUM 3.6 mmol/L (3.6-5.2) [facility] [place] [facility] CHLORIDE 108 mmol/L (100-108) [facility] [place] [facility] CO2 26 mmol/L (22-31) [facility] [place] [facility] ANION GAP 9 mmol/L (7-16) [facility] [place] [facility] UREA NITROGEN 11 mg/dL (7-24) [facility] [place] [facility] CREATININE 0.44 mg/dL (0.60-1.00) L [facility] [place] [facility] BUN/CREAT RATIO 25.0 RATIO (10.0-20.0) [facility] GLUCOSE 100 mg/dL (70-99) H [facility] [place] [facility] CALCIUM 7.9 mg/dL (8.4-10.2) L [facility] [place] [facility] TOTAL PROTEIN 4.7 g/dL (6.4-8.2) L [facility] [place] [facility] ALBUMIN 1.9 g/dL (3.5-4.6) L [facility] [place] [facility] GLOBULIN 2.8 g/dL (2.7-4.3) [facility] [place] [facility] ALB/GLOB RATIO 0.7 RATIO [facility] [place] [facility] ALKALINE PHOSPHATASE 119 U/L (45-117) [facility] BILIRUBIN,TOTAL 0.2 mg/dL (0.0-1.0) [facility] [place] [facility] PLEASE NOTE:Total bilirubin results may be falselyelevated in patients taking Eltrombopag. AST (SGOT) 53 U/L (11-39) [facility] [place] [facility] ALT (SGPT) 193 U/L (12-78) [facility] [place] [facility] GFR >60 ml/min/1.73m2 (>59) [facility] [place] [facility] GFR ( AMER) >60 ml/min/1.73m2 (>59) [facility] [place] [facility] GFR INTERPRETATION [facility] --NORMAL KIDNEY FUNCTION OR MILD DISEASE - GFR >OR= 60CHRONIC KIDNEY DISEASE - GFR 15 - 59RENAL FAILURE - GFR <15 Est. GFR calculation based on the MDRDstudy equation, which assumes a steadystate for creatinine. Est. GFR should notbe used for medication dosing. ID Date Data Source [id number] 04/15/2020 05:53:40 AM EDT [facility] [place] [facility] Name Value Range Interpretation Code Description Data Camila rce(s) Supporting Document(s) WBC 8.5 10*3/uL (4.1-11.0) [facility] [place] [facility] [place] RBC 3.00 10*6/uL (4.00-5.40) L [facility] [place] [facility] HGB 8.7 g/dL (12.0-16.0) L [facility] [place] [facility] HCT 26.2 % (36.0-47.0) L [facility] [place] [facility] MCV 87.5 fL (80.0-95.0) [facility] [place] [facility] MCH 28.9 pg (27.0-32.0) [facility] [place] [facility] MCHC 33.0 g/dL (32.0-36.0) [facility] [place] [facility] RDW 13.3 % (10.5-14.5) [facility] [place] [facility] PLT 190 10*3/uL (150-450) [facility] [place] [facility] MPV 9.0 fL (7.1-10.7) [facility] [place] [facility] ID Date Data Source [id number] 04/14/2020 08:01:40 AM EDT [facility] [place] [facility] Name Value Range Interpretation Code Description Data Camila rce(s) Supporting Document(s) URIC ACID 3.5 mg/dL (2.6-6.0) [facility] [place] [facility] [place] ID Date Data Source [id number] 04/14/2020 08:01:40 AM EDT [facility] [place] [facility] [place] Name Value Range Interpretation Code Description Data Camila rce(s) Supporting Document(s) LDH 167 U/L (84-246) [facility] [place] [facility] ID Date Data Source [id number] 04/14/2020 08:01:40 AM EDT [facility] [place] [facility] Name Value Range Interpretation Code Description Data Camila rce(s) Supporting Document(s) SODIUM 141 mmol/L (136-145) [facility] [place] [facility] POTASSIUM 3.6 mmol/L (3.6-5.2) [facility] [place] [facility] CHLORIDE 108 mmol/L (100-108) [facility] [place] [facility] CO2 26 mmol/L (22-31) [facility] [place] [facility] ANION GAP 7 mmol/L (7-16) [facility] [place] [facility] UREA NITROGEN 4 mg/dL (7-24) L [facility] [place] [facility] CREATININE 0.45 mg/dL (0.60-1.00) L [facility] [place] [facility] BUN/CREAT RATIO 8.9 RATIO (10.0-20.0) L [facility] [place] [facility] GLUCOSE 114 mg/dL (70-99) H [facility] [place] [facility] CALCIUM 7.0 mg/dL (8.4-10.2) L [facility] [place] [facility] TOTAL PROTEIN 4.9 g/dL (6.4-8.2) L [facility] [place] [facility] ALBUMIN 2.0 g/dL (3.5-4.6) L [facility] [place] [facility] GLOBULIN 2.9 g/dL (2.7-4.3) [facility] [place] [facility] ALB/GLOB RATIO 0.7 RATIO [facility] [place] [facility] ALKALINE PHOSPHATASE 147 U/L (45-117) [facility] BILIRUBIN,TOTAL 0.3 mg/dL (0.0-1.0) [facility] [place] [facility] PLEASE NOTE:Total bilirubin results may be falselyelevated in patients taking Eltrombopag. AST (SGOT) 88 U/L (11-39) H [facility] [place] [facility] ALT (SGPT) 242 U/L (12-78) H [facility] [place] [facility] GFR >60 ml/min/1.73m2 (>59) [facility] [place] [facility] GFR ( AMER) >60 ml/min/1.73m2 (>59) [facility] [place] [facility] GFR INTERPRETATION [facility] --NORMAL KIDNEY FUNCTION OR MILD DISEASE - GFR >OR= 60CHRONIC KIDNEY DISEASE - GFR 15 - 59RENAL FAILURE - GFR <15 Est. GFR calculation based on the MDRDstudy equation, which assumes a steadystate for creatinine. Est. GFR should notbe used for medication dosing. ID Date Data Source [id number] 04/14/2020 08:01:40 AM EDT [facility] [place] [facility] Name Value Range Interpretation Code Description Data Camila rce(s) Supporting Document(s) MAGNESIUM 4.3 mg/dL (1.7-2.4) [facility] [place] [facility] CONSISTENT WITH PREVIOUS RESULTS ID Date Data Source [id number] 04/14/2020 07:19:19 AM EDT [facility] [place] [facility] Name Value Range Interpretation Code Description Data Camila rce(s) Supporting Document(s) WBC 9.9 10*3/uL (4.1-11.0) [facility] [place] [facility] [place] RBC 3.29 10*6/uL (4.00-5.40) L [facility] [place] [facility] HGB 9.7 g/dL (12.0-16.0) L [facility] [place] [facility] HCT 28.5 % (36.0-47.0) L [facility] [place] [facility] MCV 86.4 fL (80.0-95.0) [facility] [place] [facility] MCH 29.4 pg (27.0-32.0) [facility] [place] [facility] MCHC 34.1 g/dL (32.0-36.0) [facility] [place] [facility] RDW 13.2 % (10.5-14.5) [facility] [place] [facility] PLT 232 10*3/uL (150-450) [facility] [place] [facility] MPV 9.0 fL (7.1-10.7) [facility] [place] [facility] ID Date Data Source [id number] 04/13/2020 07:08:59 PM EDT [facility] [place] [facility] Name Value Range Interpretation Code Description Data Camila rce(s) Supporting Document(s) LDH 227 U/L (84-246) [facility] [place] [facility] ID Date Data Source [id number] 04/13/2020 07:08:59 PM EDT [facility] [place] [facility] Name Value Range Interpretation Code Description Data Camila rce(s) Supporting Document(s) URIC ACID 3.6 mg/dL (2.6-6.0) [facility] [place] [facility] ID Date Data Source [id number] 04/13/2020 07:08:59 PM EDT [facility] [place] [facility] Name Value Range Interpretation Code Description Data Camila rce(s) Supporting Document(s) MAGNESIUM 4.2 mg/dL (1.7-2.4) [facility] [place] [facility] CONSISTENT WITH PREVIOUS RESULTS ID Date Data Source [id number] 04/13/2020 07:08:59 PM EDT [facility] [place] [facility] Name Value Range Interpretation Code Description Data Camila rce(s) Supporting Document(s) SODIUM 136 mmol/L (136-145) [facility] [place] [facility] [facility] POTASSIUM 3.4 mmol/L (3.6-5.2) L [facility] [place] [facility] CHLORIDE 102 mmol/L (100-108) [facility] [place] [facility] CO2 25 mmol/L (22-31) [facility] [place] [facility] ANION GAP 9 mmol/L (7-16) [facility] [place] [facility] UREA NITROGEN 4 mg/dL (7-24) L [facility] [place] [facility] CREATININE 0.52 mg/dL (0.60-1.00) L [facility] [place] [facility] BUN/CREAT RATIO 7.7 RATIO (10.0-20.0) L [facility] [place] [facility] GLUCOSE 99 mg/dL (70-99) [facility] [place] [facility] CALCIUM 7.0 mg/dL (8.4-10.2) L [facility] [place] [facility] TOTAL PROTEIN 5.7 g/dL (6.4-8.2) L [facility] [place] [facility] ALBUMIN 2.2 g/dL (3.5-4.6) L [facility] [place] [facility] GLOBULIN 3.5 g/dL (2.7-4.3) [facility] [place] [facility] ALB/GLOB RATIO 0.6 RATIO [facility] [place] [facility] ALKALINE PHOSPHATASE 176 U/L (45-117) H [facility] BILIRUBIN,TOTAL 0.5 mg/dL (0.0-1.0) [facility] [place] [facility] PLEASE NOTE:Total bilirubin results may be falselyelevated in patients taking Eltrombopag. AST (SGOT) 137 U/L (11-39) H [facility] [place] [facility] ALT (SGPT) 289 U/L (12-78) H [facility] [place] [facility] GFR >60 ml/min/1.73m2 (>59) [facility] [place] [facility] GFR ( AMER) >60 ml/min/1.73m2 (>59) [facility] [place] [facility] GFR INTERPRETATION [facility] --NORMAL KIDNEY FUNCTION OR MILD DISEASE - GFR >OR= 60CHRONIC KIDNEY DISEASE - GFR 15 - 59RENAL FAILURE - GFR <15 Est. GFR calculation based on the MDRDstudy equation, which assumes a steadystate for creatinine. Est. GFR should notbe used for medication dosing. ID Date Data Source [id number] 04/13/2020 06:10:42 PM EDT [facility] [place] [facility] Name Value Range Interpretation Code Description Data Camila rce(s) Supporting Document(s) WBC 12.4 10*3/uL (4.1-11.0) H [facility] [place] [facility] RBC 3.42 10*6/uL (4.00-5.40) L [facility] [place] [facility] HGB 9.9 g/dL (12.0-16.0) L [facility] [place] [facility] HCT 29.6 % (36.0-47.0) L [facility] [place] [facility] MCV 86.4 fL (80.0-95.0) [facility] [place] [facility] MCH 28.9 pg (27.0-32.0) [facility] [place] [facility] MCHC 33.5 g/dL (32.0-36.0) [facility] [place] [facility] RDW 13.5 % (10.5-14.5) [facility] [place] [facility] PLT 237 10*3/uL (150-450) [facility] [place] [facility] MPV 8.7 fL (7.1-10.7) [facility] [place] [facility] ID Date Data Source [id number] 04/13/2020 08:33:02 AM EDT [facility] [place] [facility] Name Value Range Interpretation Code Description Data Camila rce(s) Supporting Document(s) MAGNESIUM 4.5 mg/dL (1.7-2.4) HH [facility] [place] [facility] CONSISTENT WITH PREVIOUS RESULTS ID Date Data Source [id number] 04/13/2020 06:15:59 AM EDT [facility] [place] [facility] Name Value Range Interpretation Code Description Data Camila rce(s) Supporting Document(s) SODIUM 136 mmol/L (136-145) [facility] [place] [facility] POTASSIUM 3.9 mmol/L (3.6-5.2) [facility] [place] [facility] CHLORIDE 105 mmol/L (100-108) [facility] [place] [facility] CO2 25 mmol/L (22-31) [facility] [place] [facility] ANION GAP 6 mmol/L (7-16) L [facility] [place] [facility] UREA NITROGEN 4 mg/dL (7-24) L [facility] [place] [facility] CREATININE 0.47 mg/dL (0.60-1.00) L [facility] [place] [facility] BUN/CREAT RATIO 8.5 RATIO (10.0-20.0) L [facility] [place] [facility] GLUCOSE 140 mg/dL (70-99) H [facility] [place] [facility] CALCIUM 7.1 mg/dL (8.4-10.2) L [facility] [place] [facility] TOTAL PROTEIN 6.2 g/dL (6.4-8.2) L [facility] [place] [facility] ALBUMIN 2.4 g/dL (3.5-4.6) L [facility] [place] [facility] GLOBULIN 3.8 g/dL (2.7-4.3) [facility] [place] [facility] ALB/GLOB RATIO 0.6 RATIO [facility] [place] [facility] ALKALINE PHOSPHATASE 186 U/L (45-117) H [facility] BILIRUBIN,TOTAL 0.5 mg/dL (0.0-1.0) [facility] [place] [facility] PLEASE NOTE:Total bilirubin results may be falselyelevated in patients taking Eltrombopag. AST (SGOT) 107 U/L (11-39) H [facility] [place] [facility] ALT (SGPT) 240 U/L (12-78) H [facility] [place] [facility] GFR >60 ml/min/1.73m2 (>59) [facility] [place] [facility] GFR ( AMER) >60 ml/min/1.73m2 (>59) [facility] [place] [facility] GFR INTERPRETATION [facility] --NORMAL KIDNEY FUNCTION OR MILD DISEASE - GFR >OR= 60CHRONIC KIDNEY DISEASE - GFR 15 - 59RENAL FAILURE - GFR <15 Est. GFR calculation based on the MDRDstudy equation, which assumes a steadystate for creatinine. Est. GFR should notbe used for medication dosing. ID Date Data Source [id number] 04/13/2020 06:15:59 AM EDT [facility] [place] [facility] [place] Name Value Range Interpretation Code Description Data Camila rce(s) Supporting Document(s) LDH 176 U/L (84-246) [facility] [place] [facility] ID Date Data Source [id number] 04/13/2020 06:15:59 AM EDT [facility] [place] [facility] [place] Name Value Range Interpretation Code Description Data Camila rce(s) Supporting Document(s) URIC ACID 3.3 mg/dL (2.6-6.0) [facility] [place] [facility] ID Date Data Source [id number] 04/13/2020 05:46:23 AM EDT [facility] [place] [facility] Name Value Range Interpretation Code Description Data Camila rce(s) Supporting Document(s) WBC 10.7 10*3/uL (4.1-11.0) [facility] [place] [facility] RBC 3.62 10*6/uL (4.00-5.40) L [facility] [place] [facility] HGB 10.5 g/dL (12.0-16.0) L [facility] [place] [facility] HCT 31.4 % (36.0-47.0) L [facility] [place] [facility] PERFORMED AT [address] [facility] [address] MCV 86.7 fL (80.0-95.0) [facility] [place] [facility] MCH 29.1 pg (27.0-32.0) [facility] [place] [facility] MCHC 33.5 g/dL (32.0-36.0) [facility] [place] [facility] RDW 13.1 % (10.5-14.5) [facility] [place] [facility] PLT 232 10*3/uL (150-450) [facility] [place] [facility] MPV 8.6 fL (7.1-10.7) [facility] [place] [facility] ID Date Data Source [id number] 04/12/2020 08:13:13 PM EDT [facility] [place] [facility] Name Value Range Interpretation Code Description Data Camila rce(s) Supporting Document(s) LDH 167 U/L (84-246) [facility] [place] [facility] ID Date Data Source [id number] 04/12/2020 08:13:13 PM EDT [facility] [place] [facility] Name Value Range Interpretation Code Description Data Camila rce(s) Supporting Document(s) URIC ACID 3.1 mg/dL (2.6-6.0) [facility] [place] [facility] ID Date Data Source [id number] 04/12/2020 08:13:13 PM EDT [facility] [place] [facility] Name Value Range Interpretation Code Description Data Camila rce(s) Supporting Document(s) MAGNESIUM 4.1 mg/dL (1.7-2.4) [facility] [place] [facility] RESULT(S) CALLED TO AND READ BACK BYDEB L&D AT 2011 [id number]. ID Date Data Source [id number] 04/12/2020 08:13:13 PM EDT [facility] [place] [facility] Name Value Range Interpretation Code Description Data Camila rce(s) Supporting Document(s) SODIUM 139 mmol/L (136-145) [facility] [place] [facility] POTASSIUM 3.4 mmol/L (3.6-5.2) L [facility] [place] [facility] CHLORIDE 107 mmol/L (100-108) [facility] [place] [facility] CO2 25 mmol/L (22-31) [facility] [place] [facility] ANION GAP 7 mmol/L (7-16) [facility] [place] [facility] UREA NITROGEN 4 mg/dL (7-24) L [facility] [place] [facility] CREATININE 0.63 mg/dL (0.60-1.00) [facility] [place] [facility] BUN/CREAT RATIO 6.3 RATIO (10.0-20.0) L [facility] [place] [facility] GLUCOSE 133 mg/dL (70-99) H [facility] [place] [facility] CALCIUM 7.3 mg/dL (8.4-10.2) L [facility] [place] [facility] TOTAL PROTEIN 6.4 g/dL (6.4-8.2) [facility] [place] [facility] ALBUMIN 2.5 g/dL (3.5-4.6) L [facility] [place] [facility] GLOBULIN 3.9 g/dL (2.7-4.3) [facility] [place] [facility] ALB/GLOB RATIO 0.6 RATIO [facility] [place] [facility] ALKALINE PHOSPHATASE 196 U/L (45-117) H [facility] BILIRUBIN,TOTAL 0.4 mg/dL (0.0-1.0) [facility] [place] [facility] PLEASE NOTE:Total bilirubin results may be falselyelevated in patients taking Eltrombopag. AST (SGOT) 87 U/L (11-39) H [facility] [place] [facility] ALT (SGPT) 203 U/L (12-78) H [facility] [place] [facility] GFR >60 ml/min/1.73m2 (>59) [facility] [place] [facility] GFR ( AMER) >60 ml/min/1.73m2 (>59) [facility] [place] [facility] GFR INTERPRETATION [facility] --NORMAL KIDNEY FUNCTION OR MILD DISEASE - GFR >OR= 60CHRONIC KIDNEY DISEASE - GFR 15 - 59RENAL FAILURE - GFR <15 Est. GFR calculation based on the MDRDstudy equation, which assumes a steadystate for creatinine. Est. GFR should notbe used for medication dosing. ID Date Data Source [id number] 04/12/2020 06:57:38 PM EDT [facility] [place] [facility] Name Value Range Interpretation Code Description Data Camila rce(s) Supporting Document(s) WBC 8.6 10*3/uL (4.1-11.0) [facility] [place] [facility] [place] RBC 3.81 10*6/uL (4.00-5.40) L [facility] [place] [facility] HGB 11.2 g/dL (12.0-16.0) L [facility] [place] [facility] HCT 32.8 % (36.0-47.0) L [facility] [place] [facility] PERFORMED AT [address] [place] [address] MCV 86.1 fL (80.0-95.0) [facility] [place] [facility] MCH 29.3 pg (27.0-32.0) [facility] [place] [facility] MCHC 34.0 g/dL (32.0-36.0) [facility] [place] [facility] RDW 12.8 % (10.5-14.5) [facility] [place] [facility] PLT 255 10*3/uL (150-450) [facility] [place] [facility] MPV 8.5 fL (7.1-10.7) [facility] [place] [facility] ID Date Data Source [id number] 04/12/2020 08:40:47 AM EDT [facility] [place] [facility] Name Value Range Interpretation Code Description Data Camila rce(s) Supporting Document(s) URIC ACID 3.7 mg/dL (2.6-6.0) [facility] [place] [facility] ID Date Data Source [id number] 04/12/2020 08:40:47 AM EDT [facility] [place] [facility] Name Value Range Interpretation Code Description Data Camila rce(s) Supporting Document(s) LDH 171 U/L (84-246) [facility] [place] [facility] ID Date Data Source [id number] 04/12/2020 08:40:47 AM EDT [facility] [place] [facility] Name Value Range Interpretation Code Description Data Camila rce(s) Supporting Document(s) SODIUM 138 mmol/L (136-145) [facility] [place] [facility] POTASSIUM 4.1 mmol/L (3.6-5.2) [facility] [place] [facility] CHLORIDE 108 mmol/L (100-108) [facility] [place] [facility] CO2 22 mmol/L (22-31) [facility] [place] [facility] ANION GAP 8 mmol/L (7-16) [facility] [place] [facility] UREA NITROGEN 7 mg/dL (7-24) [facility] [place] [facility] CREATININE 0.52 mg/dL (0.60-1.00) L [facility] [place] [facility] BUN/CREAT RATIO 13.5 RATIO (10.0-20.0) [facility] GLUCOSE 140 mg/dL (70-99) H [facility] [place] [facility] CALCIUM 8.6 mg/dL (8.4-10.2) [facility] [place] [facility] TOTAL PROTEIN 6.5 g/dL (6.4-8.2) [facility] [place] [facility] ALBUMIN 2.5 g/dL (3.5-4.6) L [facility] [place] [facility] GLOBULIN 4.0 g/dL (2.7-4.3) [facility] [place] [facility] ALB/GLOB RATIO 0.6 RATIO [facility] [place] [facility] ALKALINE PHOSPHATASE 207 U/L (45-117) H [facility] BILIRUBIN,TOTAL 0.6 mg/dL (0.0-1.0) [facility] [place] [facility] PLEASE NOTE:Total bilirubin results may be falselyelevated in patients taking Eltrombopag. AST (SGOT) 75 U/L (11-39) H [facility] [place] [facility] ALT (SGPT) 170 U/L (12-78) H [facility] [place] [facility] GFR >60 ml/min/1.73m2 (>59) [facility] [place] [facility] GFR ( AMER) >60 ml/min/1.73m2 (>59) [facility] [place] [facility] GFR INTERPRETATION [facility] --NORMAL KIDNEY FUNCTION OR MILD DISEASE - GFR >OR= 60CHRONIC KIDNEY DISEASE - GFR 15 - 59RENAL FAILURE - GFR <15 Est. GFR calculation based on the MDRDstudy equation, which assumes a steadystate for creatinine. Est. GFR should notbe used for medication dosing. ID Date Data Source [id number] 04/12/2020 06:58:26 AM EDT [facility] [place] [facility] Name Value Range Interpretation Code Description Data Camila rce(s) Supporting Document(s) WBC 8.8 10*3/uL (4.1-11.0) [facility] [place] [facility] [place] RBC 3.85 10*6/uL (4.00-5.40) L [facility] [place] [facility] HGB 11.2 g/dL (12.0-16.0) L [facility] [place] [facility] HCT 32.9 % (36.0-47.0) L [facility] [place] [facility] PERFORMED AT [address] [facility] [address] MCV 85.5 fL (80.0-95.0) [facility] [place] Amee [facility] MCH 29.2 pg (27.0-32.0) [facility] [place] [facility] MCHC 34.1 g/dL (32.0-36.0) [facility] [place] [facility] RDW 13.1 % (10.5-14.5) [facility] [place] [facility] PLT 242 10*3/uL (150-450) [facility] [place] [facility] MPV 9.0 fL (7.1-10.7) Lab [facility] [place] ID Date Data Source [id number] 04/13/2020 10:03:30 AM EDT Lab [facility] [place] SPECIMEN DESCRIPTION VAGINAL/RECT ALCULTURE RESULTS NEGATIVE: BETA HEMOLYTIC STREPTOCOCCI GROUP B B Y PCRREPORT STATUS FINAL 04/13/2020 Name Value Range Interpretation Code Description Data Camila rce(s) Supporting Document(s) ID Date Data Source [id number] 04/12/2020 12:15:00 AM EDT [facility] [place] thania DENNEY Name Value Range Interpretation Code Description Data Camila rce(s) Supporting Document(s) SARS coronavirus 2 RNA [Presence] in Res piratory specimen by SOFI with probe detection Lab [facility] This lab was reported by [facility] [place] [facility]. ID Date Data Source [id number] 04/12/2020 08:30:59 AM EDT [facility] [place] [facility] DEN[place] Name Value Range Interpretation Code Description Data Camila rce(s) Supporting Document(s) SPECIMEN DESCRIPTION [facility] [place] COVID19 RESULT (NDET) Lab [facility] THIS ASSAY AMPLIFIES AND DETECTSTHE TARG ET RNA USING REAL-TIME PCR.NEGATIVE 2019_NCOV RT-PCR RESULTS DONOT PRECLUDE 2019_NCOV INFECTION ANDSHOULD NOT BE USED THE SOLE BASISFOR PATIENT MANAGEMENT DECISIONS. COMMENT Lab [facility] APPROVED B Y [facility]. THE [place] FOODAND DRUG ADMINISTRATION HAS NOT APPROVEDTHIS TEST. NEGATIVE RESULTS DO NOT [id number] INFECTION AND SHOULD NOT BEUSED THE SOLE BASIS FOR CLINICALDIAGNOSIS OR PATIENT MANAGEMENT DECISIONS.RESULT EMAILED TO [facility] AT 5673 ON 04/12/20 [id number]. FIRST TEST Lab [facility] [place] EMPLOYED IN [facility] SYMPTOMATIC [facility] [place] [facility] [place] DATE OF SYMPT ONSET [facility] HOSPITALIZED [facility] [place] [facility] [place] ICU [facility] [place] [facility] [place] CONGREGATE CARE SET [facility] [place] [place] [facility] [place] ID Date Data Source [id number] 04/12/2020 09:36:00 AM EDT [facility] DATE OF EXAM: 04/12/2020EXAM: OBSTETRICA L SONOGRAM INDICATION: Cholestasis of , Approximate Gestational age - 34 weeks COMPARISON: None TECHNIQUE: Sonographic images of the pelvis were obtained using transabdominal technique. FINDINGS: The examination demonstrates a single intrauterine gestation in a vertex presentation. Biparietal diameter - 86.3 mm, 34 weeks 6 daysHead circumference - 317.4 mm, 35 weeks 5 daysAbdominal circumference - 305.8 mm, 34 weeks 4 daysFemoral length - 70 mm, 35 weeks 6 daysHead/abdomen ratio - 1.04 (within normal limits)Femur/abdomen ratio - 22.9 (normal 20-24)Cephalic index - 78.9 (normal 70-86)Approximate weight - 2582 grams + / - 387 grams (5 lbs. 11 oz.) Spontaneous motion was demonstrated on real-time examination. There is limited visualization of the brain and posterior fossa related vertex position. There is also limited visualization of the umbilical cord and hands and feet. There is no evidence of ascites, pericardial effusion, or hydrocephalus. Fluid is seen in the area of the urinary bladder and stomach. The kidneys are visualized and are unremarkable. No neural- tube defects are identified. Normal four-chamber heart is noted. The heart rate is 132 beats per minute. The placenta is located posterior, grade 1. There is no evidence of placenta previa. The amount of amniotic fluid is qualitatively normal. Amniotic fluid index is 13.9 cm (50th percentile 14.2 cm) Maternal:Right ovary: Not visualizedLeft ovary: Not visualizedCervical length: 3.0 cm, closed IMPRESSION: Gestation - singlePresentation - vertexAverage Gestational age - 35 weeks 2 days Placenta - posterior, normal. No previa Amniotic fluid - normalComments: No acute abnormality, although structural survey/visualization is somewhat limited, related to positioning. K9End of diagnostic report for accession: [id number] Interpreted: Lawrence Paul MDTranscribed: 04/12/2020 09:32 AMSigned: 04/12/2020 09:36 AM Lawrence Paul MD N: [id number] [facility] # [id number] BILL # [id number] Name Value Range Interpretation Code Description Data Camila rce(s) Supporting Document(s) ID Date Data Source [id number] 04/12/2020 12:24:48 AM EDT [facility] [place] [facility] Name Value Range Interpretation Code Description Data Camila rce(s) Supporting Document(s) HIV RAPID SCR PRELIM (NEG) [facility] [place] Final Result ID Date Data Source [id number] 04/12/2020 12:52:42 AM EDT [facility] [place] SPEC EXP DATE 04/14/2020PATI ENT ABO/Rh AB POSITIVEANTIBODY SCREEN NEGATIVETESTING SITE PERFORMED AT [address] [facility] [address] Name Value Range Interpretation Code Description Data Camila rce(s) Supporting Document(s) TYPE AND SCREEN [facility] [place] [facility] [place] PATIENT ABO/Rh AB POSITIVE ID Date Data Source [id number] 04/13/2020 03:09:10 PM EDT [facility] [place] [facility] [place] Name Value Range Interpretation Code Description Data Camila rce(s) Supporting Document(s) SPECIMEN DESCRIPTION [facility] [place] N. GONORRHOEAE (NEG) [facility] [place] [facility] THIS ASSAY AMPLIFIES AND DETECTS TARGETD NA USING CREDIT CONTROL ADMINISTRATOR-MEDIATEDAMPLIFICATION ID Date Data Source [id number] 04/12/2020 12:01:03 AM EDT [facility] [place] [facility] SPECIMEN DESCRIPTION VAGINAL SPEC IMENRESULT NEGATIVE FOR TRICHOMONAS VAGINALIS BY DNA PROBE NEGATIVE FOR GAIL SPECIES BY DNA PROBE POSITIVE FOR GARDNERELLA VAGINALIS BY DNA PROBEPERFORMED AT [address] [place] [address] REPORT STATUS FINAL 04/12/2020 Name Value Range Interpretation Code Description Data Camila rce(s) Supporting Document(s) ID Date Data Source [id number] 04/17/2020 03:57:04 PM EDT [facility] Name Value Range Interpretation Code Description Data Camila rce(s) Supporting Document(s) CHOLIC ACID 17.1 H [facility] [place] [facility] Y Reference range: 0.0 to 1.9Unit: umol/L DEOXYCHOLIC ACID 5.5 H [facility] [place] [facility] [place] Reference range: 0.0 to 2.5Unit: umol/L CHENODEOXYCHOLIC AC 8.4 H [facility] [place] Reference range: 0.0 to 3.4Unit: umol/L URSODEOXYCHOLIC ACID 0.3 uM [facility] [place] Reference range: 0.0 to 1.0Unit: umol/L TOTAL BILE ACIDS 31.3 H [facility] [place] [facility] [place] Reference range: 0.0 to 7.0Unit: umol/L INTERPRETIVE INFORMATION: Bile Acids, Fractionated and Total Test developed and characteristics determined by [facility]. See Compliance Statement B: [employer]/CS Performed By: [facility] [address] [place] [id number] Machine Folder: Gilda Silvestre MD ID Date Data Source [id number] 04/15/2020 02:06:32 PM EDT Lab [facility] Name Value Range Interpretation Code Description Data Camila rce(s) Supporting Document(s) RUBELLA IGM AB <10.0 Lab [facility] Reference range: <=19.9Unit: AU/mL INTER PRETIVE INFORMATION: Rubella Ab, IgM 19.9 AU/mL or less........ Not Detected 20.0-24.9 AU/mL........... Indeterminate-Repeat testing in 10-14 days may be helpful. 25.0 AU/mL or greater..... Detected-IgM antibody to Rubella detected which may indicate a current or recent infection or immunization. Testing immediately post-exposure is of no value without a later convalescent specimen. While the presence of IgM antibodies suggest current or recent infection, low levels of IgM antibodies may occasionally persist for more than 12 months post-infection or immunization. The magnitude of the measured result is not indicative of the amount of antibody present. Performed By: [facility] [address] [place] [id number] Machine Folder: Gilda Silvestre MD ID Date Data Source [id number] 04/13/2020 12:40:04 PM EDT [facility] [place] [facility] Name Value Range Interpretation Code Description Data Camila rce(s) Supporting Document(s) RUBELLA IGG AB @ [facility] [place] [facility] IgG antibody to Rubella detected. IgGan tibody levels are at a level consideredto indicate positive immunity. ID Date Data Source [id number] 04/13/2020 11:30:10 AM EDT [facility] [place] [facility] Name Value Range Interpretation Code Description Data Camila rce(s) Supporting Document(s) TREPONEMA IGG/IGM @ (NEG) [facility] ID Date Data Source [id number] 04/13/2020 08:59:59 AM EDT [facility] [place] [facility] SPECIMEN DESCRIPTION URINE, COLLE CTION METHOD NOT SPECIFIEDCULTURE RESULTS MIXED UROGENITAL MACEY; PLEASE SUBMIT A NEW SPEC IMEN IF CLINICALLY INDICATED.REPORT STATUS FINAL 04/13/2020 Name Value Range Interpretation Code Description Data Camila rce(s) Supporting Document(s) ID Date Data Source [id number] 04/11/2020 11:27:11 PM EDT [facility] [place] [facility] Name Value Range Interpretation Code Description Data Camila rce(s) Supporting Document(s) URINE WBC (0-5) [facility] [place] [facility] URINE RBC (0-2) [facility] [place] [facility] EPITHELIAL CELLS 1+ [HPF] [facility] [place] [facility] BACTERIA 1+ [HPF] [facility] [place] [facility] ID Date Data Source [id number] 04/11/2020 10:36:15 PM EDT [facility] [place] [facility] Name Value Range Interpretation Code Description Data Camila rce(s) Supporting Document(s) COLOR [facility] [place] [facility] PERFORMED AT [address] [place] [address] APPEARANCE [facility] [place] [facility] SPEC GRAV URINE 1.009 (1.003-1.030) [facility] PH URINE 7.0 (5.0-7.5) [facility] [place] [facility] LEUK ESTERASE 1+ (NEG) A [facility] [place] [facility] NITRITE URINE (NEG) [facility] [place] [facility] PROTEIN URINE (NEG) [facility] [place] [facility] GLUCOSE URINE (NEG) [facility] [place] [facility] KETONE URINE (NEG) [facility] [place] [facility] [place] UROBILINOGEN 1.0 mg/dL (0-1.0) [facility] [place] [facility] [place] BILIRUBIN URINE (NEG) [facility] [place] [facility] BLOOD/HGB URINE (NEG) [facility] [place] [facility] ID Date Data Source [id number] 04/11/2020 10:31:55 PM EDT [facility] [place] [facility] Name Value Range Interpretation Code Description Data Camila rce(s) Supporting Document(s) URIC ACID 3.2 mg/dL (2.6-6.0) [facility] [place] [facility] ID Date Data Source [id number] 04/11/2020 10:31:55 PM EDT [facility] [place] [facility] Name Value Range Interpretation Code Description Data Camila rce(s) Supporting Document(s) SODIUM 140 mmol/L (136-145) [facility] [place] [facility] POTASSIUM 3.8 mmol/L (3.6-5.2) [facility] [place] [facility] CHLORIDE 107 mmol/L (100-108) [facility] [place] [facility] CO2 24 mmol/L (22-31) [facility] [place] [facility] ANION GAP 9 mmol/L (7-16) [facility] [place] [facility] UREA NITROGEN 5 mg/dL (7-24) L [facility] [place] [facility] CREATININE 0.48 mg/dL (0.60-1.00) L [facility] [place] [facility] BUN/CREAT RATIO 10.4 RATIO (10.0-20.0) [facility] GLUCOSE 106 mg/dL (70-99) H [facility] [place] [facility] CALCIUM 8.1 mg/dL (8.4-10.2) L [facility] [place] [facility] TOTAL PROTEIN 6.5 g/dL (6.4-8.2) [facility] [place] [facility] ALBUMIN 2.5 g/dL (3.5-4.6) L [facility] [place] [facility] GLOBULIN 4.0 g/dL (2.7-4.3) [facility] [place] [facility] ALB/GLOB RATIO 0.6 RATIO [facility] [place] [facility] ALKALINE PHOSPHATASE 190 U/L (45-117) H [facility] BILIRUBIN,TOTAL 0.5 mg/dL (0.0-1.0) [facility] [place] [facility] PLEASE NOTE:Total bilirubin results may be falselyelevated in patients taking Eltrombopag. AST (SGOT) 67 U/L (11-39) H [facility] [place] [facility] ALT (SGPT) 151 U/L (12-78) H [facility] [place] [facility] GFR >60 ml/min/1.73m2 (>59) [facility] [place] [facility] GFR ( AMER) >60 ml/min/1.73m2 (>59) [facility] [place] [facility] GFR INTERPRETATION [facility] --NORMAL KIDNEY FUNCTION OR MILD DISEASE - GFR >OR= 60CHRONIC KIDNEY DISEASE - GFR 15 - 59RENAL FAILURE - GFR <15 Est. GFR calculation based on the MDRDstudy equation, which assumes a steadystate for creatinine. Est. GFR should notbe used for medication dosing. ID Date Data Source [id number] 04/11/2020 10:31:55 PM EDT [facility] [place] [facility] [place] Name Value Range Interpretation Code Description Data Camila rce(s) Supporting Document(s) LDH 153 U/L (84-246) [facility] [place] [facility] [place] ID Date Data Source [id number] 04/11/2020 09:52:29 PM EDT [facility] [place] [facility] [place] Name Value Range Interpretation Code Description Data Camila rce(s) Supporting Document(s) PROTEIN,URINE 14 mg/dL [facility] [place] [facility] [place] URINE PROTEIN MAY BE FALSELY ELEVATEDDUR ING TREATMENT WITH AMINOGLYCOSIDESDUE TO METHOD INTERFERENCE. CREATININE,URINE 41.90 mg/dL [facility] [place] URINE TP/CR RATIO 0.33 RATIO (0.00-0.20) H [facility] ID Date Data Source [id number] 04/11/2020 09:34:46 PM EDT [facility] [place] [facility] [place] Name Value Range Interpretation Code Description Data Camila rce(s) Supporting Document(s) WBC 7.6 10*3/uL (4.1-11.0) [facility] [place] [facility] [place] RBC 3.80 10*6/uL (4.00-5.40) L [facility] [place] [facility] HGB 11.0 g/dL (12.0-16.0) L [facility] [place] [facility] [place] HCT 32.8 % (36.0-47.0) L [facility] [place] [facility] [place] PERFORMED AT [address] [facility] [id number] MCV 86.3 fL (80.0-95.0) [facility] [place] [facility] MCH 29.1 pg (27.0-32.0) [facility] MCHC 33.7 g/dL (32.0-36.0) [facility] RDW 13.1 % (10.5-14.5) [facility] PLT 254 10*3/uL (150-450) [facility] MPV 8.9 fL (7.1-10.7) [facility] ID Date Data Source Type and Screen (D Rh Antibody Screen) 04/08/2020 01:04:46 P M EDT eCW1 ([facility]) Name Value Range Interpretation Code Description Data Camila rce(s) Supporting Document(s) NEGATIVE eCW1 ([facility]) AB POSITIVE eCW1 ([facility]) ID Date Data Source CBC - Complete Blood Count 04/08/2020 01:04:33 PM EDT eCW1 ( [facility]) Name Value Range Interpretation Code Description Data Camila rce(s) Supporting Document(s) 3.45 RED BLOOD COUNT eCW1 ([facility]) 10.3 HEMOGLOBIN eCW1 ([facility]) 8.0 WHITE BLOOD COUNT eCW1 ([facility]) 33.3 MEAN CORPUSCULAR HGB CONC eCW1 ([facility]) 30.9 HEMATOCRIT eCW1 ([facility]) 29.9 MEAN CORPUSCULAR HEMOGLOBIN eC W1 ([facility]) 89.6 MEAN CORPUSCULAR VOLUME eCW1 ( [facility]) 12.3 RED CELL DISTRIBUTION WIDTH eC W1 ([facility]) 221 PLATELET COUNT, AUTOMATED eCW1 ([facility]) ID Date Data Source Glucose Challenge Test 1 Hour 04/08/2020 01:04:26 PM EDT eCW 1 ([facility]) Name Value Range Interpretation Code Description Data Camila rce(s) Supporting Document(s) 130 eCW1 ([facility]) ID Date Data Source [id number] 04/10/2020 07:33:00 AM EDT [facility] Name Value Range Interpretation Code Description Data Camila rce(s) Supporting Document(s) Bile acid [Moles/volume] in Serum 24.4 umol/L 0.0-10.0 H [facility] ID Date Data Source [id number] 04/06/2020 03:43:00 PM EDT [facility] Name Value Range Interpretation Code Description Data Camila rce(s) Supporting Document(s) CBC W/AUTOMATED DIFF [facility] COMPLETE BLOOD COUNT Leukocytes [#/volume] in Blood by Automated count 6.0 10^3/uL 4.2 - 1 1.0 [facility] Erythrocytes [#/volume] in Blood by Automated count 3.62 10^6/uL 4. 20 - 5.40 L [facility] Hemoglobin [Mass/volume] in Blood 10.3 g/dL 12.0 - 16.0 L [facility] Hematocrit [Volume Fraction] of Blood by Automated count 31.2 % 3 7.0 - 47.0 L [facility] Erythrocyte mean corpuscular volume [Entitic volume] by Auto mated count 86.2 fL 81.0 - 101 [facility] Erythrocyte mean corpuscular hemoglobin [Entitic mass] by Automated count 28.5 pg 27.0 - 34.0 [facility] Erythrocyte mean corpuscular hemoglobin concentration [Mass/volume] by Automated count 33.0 g/dL 31.0 - 36.0 [facility] Erythrocyte distribution width [Ratio] by Automated count 12.3 % 11.5 - 14.5 [facility] Platelets [#/volume] in Blood by Automated count 230 10^3/uL 150 - 45 0 [facility] Platelet mean volume [Entitic volume] in Blood by Automated count 10.5 fL 7.4 - 10.4 H [facility] Neutrophils/100 leukocytes in Blood by Automated count 72.2 % 37. 0 - 80.0 [facility] Lymphocytes/100 leukocytes in Blood by Manual count 19.6 % 25.0 - 40.0 L [facility] Monocytes/100 leukocytes in Blood by Automated count 6.2 % 3.0 - 8.0 [facility] Eosinophils/100 leukocytes in Blood by Automated count 1.5 % 0.0 - 7.0 [facility] Basophils/100 leukocytes in Blood by Automated count 0.2 % 0.0 - 2.5 [facility] %IG 0.3 % 0.0 - 0.0 H [facility] al %NRBC 0.0 % 0.0 - 0.0 [facility] al Neutrophils [#/volume] in Blood by Automated count 4.32 10^3/uL 2.00 - 6.90 [facility] Lymphocytes [#/volume] in Blood by Automated count 1.17 10^3/uL 0.60 - 3.40 [facility] Monocytes [#/volume] in Blood by Automated count 0.37 10^3/uL 0.00 - 0.90 [facility] Eosinophils [#/volume] in Blood by Automated count 0.09 10^3/uL 0.00 - 0.70 [facility] Basophils [#/volume] in Blood by Automated count 0.01 10^3/uL 0.00 - 0.20 [facility] #IG 0.02 10^3/uL 0.00 - 0.10 [facility] #NRBC 0.00 10^3/uL 0.00 - 0.00 [facility] MANUAL DIFF NOT INDICATED [facility] RBC MORPH NOT INDICATED [facility] ID Date Data Source [id number] 04/06/2020 03:02:00 PM EDT [facility] Name Value Range Interpretation Code Description Data Camila rce(s) Supporting Document(s) Urate [Mass/volume] in Serum or Plasma 3.4 MG/DL 2.5 - 8.5 [facility] ID Date Data Source [id number] 04/06/2020 03:02:00 PM EDT [facility] Name Value Range Interpretation Code Description Data Camila rce(s) Supporting Document(s) COMPREHENSIVE METABOLIC PANEL [facility] COMPREHENSIVE METABOLIC PANEL Sodium [Moles/volume] in Serum or Plasma 136 mEq/L 134 - 153 [facility] Potassium [Moles/volume] in Serum or Plasma 3.7 mEq/L 3.6 - 5.0 [facility] Chloride [Moles/volume] in Serum or Plasma 103 mEq/L 98 - 107 [facility] Carbon dioxide, total [Moles/volume] in Serum or Plasma 23 MEQ/L 22 - 30 [facility] Glucose [Mass/volume] in Serum or Plasma 92 MG/DL 65 - 110 [facility] BUN 5 MG/DL 7 - 21 L [facility] Creatinine [Mass/volume] in Serum or Plasma 0.4 MG/DL 0.7 - 1.5 L [facility] BUN/CREAT 13 8 - 27 [facility] Protein [Mass/volume] in Serum or Plasma 6.0 G/DL 6.3 - 8.2 L [facility] Albumin [Mass/volume] in Serum or Plasma 3.4 G/DL 3.9 - 5.0 L [facility] Globulin [Mass/volume] in Serum by calculation 2.6 GM/DL 2.4 - 3.2 [facility] A/G RATIO 1.3 0.8 - 2.0 [facility] Calcium [Mass/volume] in Serum or Plasma 8.9 MG/DL 8.4 - 10.2 [facility] Bilirubin.total [Mass/volume] in Serum or Plasma <0.7 MG/DL 0.2 - 1.3 [facility] Alkaline phosphatase [Enzymatic activity/volume] in Serum or Plasma 168 U/L 38 - 126 H [facility] Aspartate aminotransferase [Enzymatic activity/volume] in Serum or Plasma 33 U/L 5 - 40 [facility] Alanine aminotransferase [Enzymatic activity/volume] in Seru m or Plasma 46 U/L 7 - 56 [facility] Anion gap 3 in Serum or Plasma 10.0 mmol/L 8.0 - 16.0 [facility] AGE 24 yrs [facility] al NON-AA GFR >60 mL/min [facility] ital AFR AMER GFR >60 mL/min [facility] spital Male GFR In terprentation 20-49 yrs >60 mL/min Normal 50-59 yrs >56 mL/min Normal 60-69 yrs >49 mL/min Normal 70-79yrs >42 mL/min Normal 80 and above >35 mL/min Normal Female GFR Interpretation 20-39 yrs >60 mL/min Normal 40-49 yrs >58 mL/min Normal 50-59 yrs >51 mL/min Normal 60-69 yrs >45 mL/min Normal 70-79 yrs >39 mL/min Normal 80 and above >32 mL/min Normal ID Date Data Source [id number] 04/06/2020 03:02:00 PM EDT [facility] Name Value Range Interpretation Code Description Data Camila rce(s) Supporting Document(s) Bilirubin.direct [Mass/volume] in Serum or Plasma <0.2 MG/DL 0.1 - 0. 4 [facility] ID Date Data Source [id number] 04/06/2020 03:02:00 PM EDT [facility] Name Value Range Interpretation Code Description Data Camila rce(s) Supporting Document(s) Lactate dehydrogenase [Enzymatic activity/volume] in Serum o r Plasma 149 U/L 135 - 214 [facility] ID Date Data Source [id number] 04/06/2020 03:00:00 PM EDT [facility] Name Value Range Interpretation Code Description Data Camila rce(s) Supporting Document(s) Protein [Mass/volume] in Urine by Test strip 12 mg/dL 0 - 20 [facility] T ID Date Data Source [id number] 04/06/2020 02:46:00 PM EDT [facility] Name Value Range Interpretation Code Description Data Camila rce(s) Supporting Document(s) Prothrombin time (PT) 13.2 SECONDS 11.0 - 15.5 [facility] INR in Platelet poor plasma by Coagulation assay 0.99 0.93 - 1. 23 [facility] aPTT in Blood by Coagulation assay 24.6 SECONDS 24.8 - 36.7 L [facility] \\BLDo\\INR INTERPRETATION\\BLDx\\ Therapeutic range for Coumadin and related oral anticoagulants. - International Normalized Ratio (INR): 2.0 - 3.0 for Venous Thrombosis, Pulmonary Embolus, Tissue heart valves, Acute LA Atrial Fibrillation, Valvular heart disease and recurrent Systemic Embolism. - International Normalized Ratio (INR): 2.5 - 3.5 for Mechanical Prosthetic valve. ID Date Data Source [id number] 04/06/2020 02:40:00 PM EDT [facility] Name Value Range Interpretation Code Description Data Camila rce(s) Supporting Document(s) CREAT UR 54.2 MG/DL 0.0 - 30.0 H [facility] ital ID Date Data Source [id number] 04/06/2020 02:34:00 PM EDT [facility] Name Value Range Interpretation Code Description Data Camila rce(s) Supporting Document(s) URINALYSIS [facility] dionna [facility] yellow NORMAL: Yellow [facility] CLARITY clear NORMAL: Clear [facility] Specific gravity of Urine by Test strip 1.010 1.001 - 1.030 [facility] pH 7 5 - 9 [facility] al Glucose [Mass/volume] in Urine by Test strip NORM NORMAL: Negat [facility] Bilirubin.total [Presence] in Urine by Test strip NEG NORMAL: Negative [facility] Ketones [Presence] in Urine by Test strip NEG NORMAL: Negative [facility] Protein [Mass/volume] in Urine by Test strip NEG NORMAL: Negat [facility] Nitrite [Presence] in Urine by Test strip NEG NORMAL: Negative [facility] BLOOD 10 NORMAL: Negative [facility] Leukocyte esterase [Presence] in Urine by Test strip 25 DAVE L: Negative [facility] Urobilinogen [Mass/volume] in Urine by Test strip NOR less jane n 1.0 mg/dL [facility] MICROSCOPIC See Below [facility] ital WBC 0 - 1 NORMAL: NONE SEEN [facility] Bacteria [Presence] in Urine sediment by Light microscopy Tr jamir NORMAL: NONE SEEN [facility] Procedure Social History Code Duration Value Status Description Data Source(s ) Smoking 10/13/2020 12:00:00 AM EDT Never Smoker completed Never S moker eCW1 ([facility]) Smoking 07/13/2020 12:00:00 AM EST Never Smoker completed Never S moker eCW1 ([facility]) Smoking 07/13/2020 12:00:00 AM EST Never Smoker completed Never S moker eCW1 ([facility]) Smoking 04/11/2020 11:33:00 PM EDT Denies Ever Smoked complete d Denies Ever Smoked [facility] Smoking 04/10/2020 12:00:00 AM EDT Never Smoker completed Never S moker eCW1 ([facility]) Vital Signs ID Date Data Source UNK Name Value Range Interpretation Code Description Data Source(s) Body temperature 98.1 [degF] 98.1 [degF] MEDENT ([facility]) Body height 64 [in_i] 64 [in_i] eCW1 ([facility]) Body mass index (BMI) [Ratio] 38.62 kg/m2 38.62 kg/m2 eCW1 ([facility]) Systolic blood pressure 112 mm[Hg] 112 mm[Hg] e CW1 ([facility]) Diastolic blood pressure 62 mm[Hg] 62 mm[Hg] eCW1 ([facility]) Body weight 225 [lb_av] 225 [lb_av] W1 ([facility]) Body temperature 98.9 [degF] 98.9 [degF] [facility] ([facility]) Body height 64 [in_i] 64 [in_i] [facility] 5'4" [place] body weight 120 [lb_av] 120 [lb_av] MEDEN T ([facility]) Body weight 231.00 [lb_av] 231.00 [lb_av] MEDEN T ([facility]) Body mass index (BMI) [Ratio] 39.6 kg/m2 39.6 k g/m2 [facility] ([facility]) [place] body weight 120 [lb_av] 120 [lb_av] MEDEN T ([facility]) Body weight 104.782 kg 104.782 kg [facility] ([facility]) Body surface area Derived from formula 2.08 m2 2.08 m2 [facility] ([facility]) Body temperature 97.3 [degF] 97.3 [degF] MEDENT ([facility]) Body height 64 [in_i] 64 [in_i] [facility] ([facility], ) 5'4" Body weight 228 [lb_av] 228 [lb_av] eCW1 ([facility]) Body mass index (BMI) [Ratio] 39.13 kg/m2 39.13 kg/m2 W1 ([facility]) Systolic blood pressure 112 mm[Hg] 112 mm[Hg] e CW1 ([facility]) Body height 64 [in_i] 64 [in_i] eCW1 ([facility]) Diastolic blood pressure 62 mm[Hg] 62 mm[Hg] eCW1 ([facility]) Diastolic blood pressure 62 mm[Hg] Normal (applies to non-numeric results) 62 mm[Hg] [facility] Systolic blood pressure 90 mm[Hg] Normal (applies t o non-numeric results) 90 mm[Hg] [facility] Respiratory rate 18 min Normal (applies to non-numeric results) 18 min [facility] Body temperature 36.8 kamila Normal (applies to non-numeric results) 36.8 kamila [facility] Body height 162.1536 cm Normal (applies to non-numeric res ults) 162.1536 cm [facility] Heart rate 51 min Normal (applies to non-numeric resul ts) 51 min [facility] Deprecated Oxygen saturation in Capillary blood by Oximetry 99 % Normal (applies to non-numeric results) 99 % [facility] Body mass index (BMI) [Ratio] 40.17 kg/m2 No rmal (applies to non-numeric results) 40.17 kg/m2 [facility] Body weight Measured 106.141 kg Normal (applies to n on-numeric results) 106.141 kg [facility] ID Date Data Source [id number] 04/10/2020 07:34:06 AM EDT [facility] Name Value Range Interpretation Code Description Data Source(s) WEIGHT RECORDED 234.00 pounds 234.00 pounds [facility] Height 64 Inches 064 Inches [facility] ID Date Data Source [id number] 04/06/2020 02:37:54 PM EDT [facility] Name Value Range Interpretation Code Description Data Source(s) WEIGHT RECORDED 218.00 pounds 218.00 pounds [facility] Height 64 Inches 064 Inches [facility]
[2021-05-09] MEDS ORDERED: CEPH500C PO (14:58)
[2021-05-09] MEDS ORDERED: PYRI1TAB5 PO (15:00)
--- OUTSIDE RECORDS SUMMARY | 2021-05-09 15:01 | CCD ---
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 Name Role Phone NO, PCP Unavailable Unavailable [...] Unavailable MD CHICHI LARRYAH Unavailable Unavailable MD LARON EZEKIEL Unavailable Unavailable MD CHICHI LARRYAH Unavailable Unavailable [...] MD Unavailable Unavailable MollisonAnaya MD Unavailable Unavailable MollisonAnaya MD Unavailable Unavailable Mollison, Anaya Rosado MD Unavailable Unavailable Mollison, Anaya Rosado MD Unavailable Unavailable Mollison, Anaya Rosado MD Unavailable Unavailable MollisonAnaya MD Unavailable Unavailable Mollison, Anaya Rosado MD Unavailable Unavailable MollisonAnaya MD Unavailable Unavailable MollisonAnaya MD Unavailable Unavailable MollisonAnaya MD Unavailable Unavailable MollisonAnaya MD Unavailable Unavailable MollisonAnaya MD Unavailable Unavailable [...] Unavailable Unavailable MD EZEKIEL LARRY Unavailable Unavailable LARRY, MD EZEKIEL Unavailable Unavailable MD EZEKIEL LARRY Unavailable Unavailable [...] is protected by Article 27-F of the [facility] Public Health law. If you continue you may have access to information: Regarding HIV / AIDS; Provided by facilities licensed or operated by the [facility] Office of Mental Health; or Provided by the [facility] Office for People With Developmental Disabilities. If such information is present, then the following [facility] mandated warning applies: This information has been [...] law may result in a fine or senior care sentence or both. A general authorization for the release of medical or other information is NOT sufficient authorization for further disc losure. Allergies and Adverse Reactions Type Description Substance Reaction Status Data Source(s ) No Known Drug Allergies No Known Drug Allergies [facility] Hospital Encounters Encounter Providers Location Date Indications Data Source(s ) Outpatient Attender: Alonzo Blanco/Gael/Satish/Re indl 01/08/2021 03:30:00 PM EDT [facility] ([facility]) Outpatient [address] [facility] [address] 10/14/2020 12:00:00 AM EDT eCW1 ([facility]) Unknown [address] [facility] [address] 09/11/2020 12:00:00 AM EST eCW1 ([facility]) Outpatient Attender: Alonzo Blanco/Gael/Satish/Re indl 08/25/2020 02:00:00 PM EST [facility] ([facility]) Outpatient Attender: Alonzo Blanoc/Gael/Satish/Re indl 07/20/2020 07:30:00 AM EST [facility] ([facility]) ([facility]) [facility] OB [address] [place] [address] 07/13/2020 12:00:00 AM EST eCW1 ([facility]) Inpatient Attender: MD EZEKIEL LARRY 04/11/2020 09:34:47 P M EDT [facility] Inpatient Attender: MD EZEKIEL LARRYAdmitter: MD EZEKIEL GRAVES 04/11/2020 08:27:00 PM EDT - 04/15/2020 12:31:00 PM EDT PRE-ECLAMPSIA W/SEVERE FEATURES [facility] PRE-ECLAMPSIA W/SEVERE FEATURES Patient discharged. Outpatient Attender: MD EZEKIEL LARRY 04/11/2020 08:27:00 P M EDT [facility] Outpatient Attender: DEBBIE ERVIN MDConsultant: PCP NO 04/06/2020 01:38:00 PM EDT - 04/06/2020 03:50:00 PM EDT [facility] ital Patient discharged. Outpatient Attender: ARTHUR CARRINGTONConsultant: PCP NO 03/03/2020 12:35:00 AM EDT - 03/03/2020 03:13:00 AM EDT [facility] Patient discharged. Medications Medication Brand Name Start Date Product Form Dose Route Admi nistrative Instructions Pharmacy Instructions Status Indications Reaction Description Data Source(s) No Active Medications 01/08/2021 12:00:00 AM EDT completed [facility] ([facility]) 600 mg 04/15/2020 12:00:00 [...] type / Coverage type Policy ID Covered constitution party ID Covered constitution party's relationship to jeff Policy Jeff Plan Information CORBIN [id number] SP [id number] [place] [id number] SP [id number] MEMIC [place] 2010 SP 2010 ONE CALL CARE MANAGEMENT O [id number] S [id number] CORBIN I [id number] Self [id number] MEDICAID GME [id number] S [id number] CORBIN CARE HEA [id number] S [id number] [place] CARE [place] -OP [id number] 18 [id number] MEM[place] [id number] SP [id number] [place] CARE [place] O [id number] S [id number] Managed Care [place] P UNAVAILABLE S UNAVAILABLE Medicaid S UNAVAILABLE S UNAVAILA BLE D Managed Care [place] O UNAVAILABLE S UNAVAILABLE Medicaid Dental O UNAVAILABLE S UN AVAILABLE MEDICAID [id number] SP [id number] SELF PAY ONLY [id number] SP [id number] NCO EPALS [id number] SP [id number] Problems, Conditions, and Diagnoses Code Display Name Description Problem Type Effective Dates Data Source(s) Z3A33 33 weeks gestation of 33 weeks gestation of Diagnosis 04/06/2020 01:38:00 PM EDT [facility] R519 Invalid ICD10 Description Invalid ICD10 Description Di agnosis 04/06/2020 01:38:00 PM EDT [facility] Surgeries/Procedures Procedure Description Date Indications Data Source(s) OFFICE OUTPATIENT VISIT 15 MINUTES 01/08/2021 12:00:00 AM EDT [facility] ([facility]) OFFICE OUTPATIENT VISIT 25 MINUTES 01/08/2021 12:00:00 AM EDT [facility] ([facility]) OFFICE OUTPATIENT VISIT 25 MINUTES 12/07/2020 12:00:00 AM EDT [facility] ([facility]) OFFICE OUTPATIENT VISIT 15 MINUTES 08/25/2020 12:00:00 AM EST [facility] ([facility]) OFFICE OUTPATIENT VISIT 15 MINUTES 07/20/2020 12:00:00 AM EST [facility] ([facility]) Results ID Date Data Source [id number] 10/25/2020 08:45:00 AM EDT [facility] Name Value Range Interpretation Code Description Data Camila rce(s) Supporting Document(s) SARS-CoV-2 (COVID-19) RNA [Presence] in Respiratory specimen by SOFI with probe detection Not Detected [facility] This lab was ordered by [facility] and reported by [employer]. ID Date Data Source [id number] 09/01/2020 04:15:00 PM EST [facility] Name Value Range Interpretation Code Description Data Camila rce(s) Supporting Document(s) SARS-CoV-2 NEGATIVE [facility] This lab was ordered by [facility] and reported by [employer]. ID Date Data Source [id number] 09/01/2020 12:00:00 AM EST [facility] Name Value Range Interpretation Code Description Data Camila rce(s) Supporting Document(s) SARS-CoV-2 RT-PCR negative [facility] This lab was ordered by [facility] and re ported by [employer]. ID Date Data Source [id number] 08/17/2020 12:00:00 AM EST [facility] Alonzo Ness MD Patient Name: GINI [id number] [facility] Date of : 1995[address] Date of Exam: 08/17/2020MOISE Smith [address]TZ#: [phone]: EXAM: MRI KNEE LEFT WITHOUT CONTRASTCLINICAL INFORMATION: Prior patellar dislocation with possible loose bodyin the left knee.COMPARISON: X-ray 02/16/2020.Accredited by the [employer] [employer] in MR.TECHNIQUE: Osman nal [...] joint effusion. No loose body.Accredited by the [employer] [employer] in MR.Pancho Guaman, MDPKAYLI/slmTdoris dai for referring MELISA WYNN to our office. Electronically Signed - PANCHO GUAMAN MD 08/18/20 8:24 Name Value Range Interpretation Code Description Data Camila rce(s) Supporting Document(s) ID Date Data Source [id number] 04/15/2020 06:16:55 AM EDT [facility] Name Value Range Interpretation Code Description Data Camila rce(s) Supporting Document(s) URIC ACID 4.2 mg/dL (2.6-6.0) [facility] [place] ID Date Data Source [id number] 04/15/2020 06:16:55 AM EDT [facility] Name Value Range Interpretation Code Description Data Camila rce(s) Supporting Document(s) LDH 156 U/L (84-246) Lab [facility] ID Date Data Source [id number] 04/15/2020 06:16:55 AM EDT [facility] [place] Name Value Range Interpretation Code Description Data Camila rce(s) Supporting Document(s) SODIUM 143 mmol/L (136-145) [facility] POTASSIUM 3.6 mmol/L (3.6-5.2) [facility] CHLORIDE 108 mmol/L (100-108) [facility] CO2 26 mmol/L (22-31) [facility] ANION GAP 9 mmol/L (7-16) [facility] UREA NITROGEN 11 mg/dL (7-24) [facility] CREATININE 0.44 mg/dL (0.60-1.00) L [facility] BUN/CREAT RATIO 25.0 RATIO (10.0-20.0) H [facility] GLUCOSE 100 mg/dL (70-99) H [facility] CALCIUM 7.9 mg/dL (8.4-10.2) L [facility] TOTAL PROTEIN 4.7 g/dL (6.4-8.2) L [facility] ALBUMIN 1.9 g/dL (3.5-4.6) L [facility] GLOBULIN 2.8 g/dL (2.7-4.3) [facility] ALB/GLOB RATIO 0.7 RATIO [facility] ALKALINE PHOSPHATASE 119 U/L (45-117) [facility] BILIRUBIN,TOTAL 0.2 mg/dL (0.0-1.0) [facility] [place] PLEASE NOTE:Total bilirubin results may be falselyelevated in patients taking Eltrombopag. AST (SGOT) 53 U/L (11-39) [facility] ALT (SGPT) 193 U/L (12-78) H [facility] GFR >60 ml/min/1.73m2 (>59) [facility] GFR ( AMER) >60 ml/min/1.73m2 (>59) [facility] GFR INTERPRETATION [facility] --NORMAL KIDNEY FUNCTION OR MILD DISEASE - GFR >OR= 60CHRONIC KIDNEY DISEASE - GFR 15 - 59RENAL FAILURE - GFR <15 Est. GFR calculation based on the MDRDstudy equation, which assumes a steadystate for creatinine. Est. GFR should notbe used for medication dosing. ID Date Data Source [id number] 04/15/2020 05:53:40 AM EDT [facility] [place] Name Value Range Interpretation Code Description Data Camila rce(s) Supporting Document(s) WBC 8.5 10*3/uL (4.1-11.0) [facility] [place] [facility] [place] RBC 3.00 10*6/uL (4.00-5.40) L [facility] HGB 8.7 g/dL (12.0-16.0) L [facility] HCT 26.2 % (36.0-47.0) L [facility] MCV 87.5 fL (80.0-95.0) [facility] MCH 28.9 pg (27.0-32.0) [facility] MCHC 33.0 g/dL (32.0-36.0) [facility] RDW 13.3 % (10.5-14.5) [facility] PLT 190 10*3/uL (150-450) [facility] MPV 9.0 fL (7.1-10.7) [facility] ID Date Data Source [id number] 04/14/2020 08:01:40 AM EDT [facility] [place] Name Value Range Interpretation Code Description Data Cmaila rce(s) Supporting Document(s) URIC ACID 3.5 mg/dL (2.6-6.0) [facility] ID Date Data Source [id number] 04/14/2020 08:01:40 AM EDT [facility] [place] Name Value Range Interpretation Code Description Data Camila rce(s) Supporting Document(s) LDH 167 U/L (84-246) [facility] ID Date Data Source [id number] 04/14/2020 08:01:40 AM EDT [facility] Name Value Range Interpretation Code Description Data Camila rce(s) Supporting Document(s) SODIUM 141 mmol/L (136-145) [facility] POTASSIUM 3.6 mmol/L (3.6-5.2) [facility] CHLORIDE 108 mmol/L (100-108) [facility] CO2 26 mmol/L (22-31) [facility] ANION GAP 7 mmol/L (7-16) [facility] UREA NITROGEN 4 mg/dL (7-24) L [facility] CREATININE 0.45 mg/dL (0.60-1.00) L [facility] BUN/CREAT RATIO 8.9 RATIO (10.0-20.0) L [facility] GLUCOSE 114 mg/dL (70-99) H [facility] CALCIUM 7.0 mg/dL (8.4-10.2) L [facility] TOTAL PROTEIN 4.9 g/dL (6.4-8.2) L [facility] ALBUMIN 2.0 g/dL (3.5-4.6) L [facility] GLOBULIN 2.9 g/dL (2.7-4.3) [facility] ALB/GLOB RATIO 0.7 RATIO [facility] ALKALINE PHOSPHATASE 147 U/L (45-117) [facility] BILIRUBIN,TOTAL 0.3 mg/dL (0.0-1.0) [facility] [place] PLEASE NOTE:Total bilirubin results may be falselyelevated in patients taking Eltrombopag. AST (SGOT) 88 U/L (11-39) H [facility] ALT (SGPT) 242 U/L (12-78) H [facility] GFR >60 ml/min/1.73m2 (>59) [facility] GFR ( AMER) >60 ml/min/1.73m2 (>59) [facility] GFR INTERPRETATION [facility] --NORMAL KIDNEY FUNCTION OR MILD DISEASE - GFR >OR= 60CHRONIC KIDNEY DISEASE - GFR 15 - 59RENAL FAILURE - GFR <15 Est. GFR calculation based on the MDRDstudy equation, which assumes a steadystate for creatinine. Est. GFR should notbe used for medication dosing. ID Date Data Source [id number] 04/14/2020 08:01:40 AM EDT [facility] Name Value Range Interpretation Code Description Data Camila rce(s) Supporting Document(s) MAGNESIUM 4.3 mg/dL (1.7-2.4) HH [facility] CONSISTENT WITH PREVIOUS RESULTS ID Date Data Source [id number] 04/14/2020 07:19:19 AM EDT [facility] Name Value Range Interpretation Code Description Data Camila rce(s) Supporting Document(s) WBC 9.9 10*3/uL (4.1-11.0) [facility] [place] [facility] [place] RBC 3.29 10*6/uL (4.00-5.40) L [facility] HGB 9.7 g/dL (12.0-16.0) L [facility] HCT 28.5 % (36.0-47.0) L [facility] MCV 86.4 fL (80.0-95.0) [facility] MCH 29.4 pg (27.0-32.0) [facility] MCHC 34.1 g/dL (32.0-36.0) [facility] RDW 13.2 % (10.5-14.5) [facility] PLT 232 10*3/uL (150-450) [facility] MPV 9.0 fL (7.1-10.7) [facility] ID Date Data Source [id number] 04/13/2020 07:08:59 PM EDT [facility] Name Value Range Interpretation Code Description Data Camila rce(s) Supporting Document(s) LDH 227 U/L (84-246) [facility] ID Date Data Source [id number] 04/13/2020 07:08:59 PM EDT [facility] Name Value Range Interpretation Code Description Data Camila rce(s) Supporting Document(s) URIC ACID 3.6 mg/dL (2.6-6.0) [facility] ID Date Data Source [id number] 04/13/2020 07:08:59 PM EDT [facility] Name Value Range Interpretation Code Description Data Camila rce(s) Supporting Document(s) MAGNESIUM 4.2 mg/dL (1.7-2.4) HH [facility] CONSISTENT WITH PREVIOUS RESULTS ID Date Data Source [id number] 04/13/2020 07:08:59 PM EDT [facility] Name Value Range Interpretation Code Description Data Camila rce(s) Supporting Document(s) SODIUM 136 mmol/L (136-145) [facility] POTASSIUM 3.4 mmol/L (3.6-5.2) L [facility] CHLORIDE 102 mmol/L (100-108) [facility] CO2 25 mmol/L (22-31) [facility] ANION GAP 9 mmol/L (7-16) [facility] UREA NITROGEN 4 mg/dL (7-24) L [facility] [place] CREATININE 0.52 mg/dL (0.60-1.00) L [facility] BUN/CREAT RATIO 7.7 RATIO (10.0-20.0) L [facility] GLUCOSE 99 mg/dL (70-99) [facility] CALCIUM 7.0 mg/dL (8.4-10.2) L [facility] TOTAL PROTEIN 5.7 g/dL (6.4-8.2) L [facility] ALBUMIN 2.2 g/dL (3.5-4.6) L [facility] GLOBULIN 3.5 g/dL (2.7-4.3) [facility] ALB/GLOB RATIO 0.6 RATIO [facility] [place] ALKALINE PHOSPHATASE 176 U/L (45-117) H [facility] BILIRUBIN,TOTAL 0.5 mg/dL (0.0-1.0) [facility] [place] [facility] PLEASE NOTE:Total bilirubin results may be falselyelevated in patients taking Eltrombopag. AST (SGOT) 137 U/L (11-39) H [facility] [place] ALT (SGPT) 289 U/L (12-78) H [facility] [place] GFR >60 ml/min/1.73m2 (>59) [facility] GFR ( AMER) >60 ml/min/1.73m2 (>59) [facility] GFR INTERPRETATION [facility] --NORMAL KIDNEY FUNCTION OR MILD DISEASE - GFR >OR= 60CHRONIC KIDNEY DISEASE - GFR 15 - 59RENAL FAILURE - GFR <15 Est. GFR calculation based on the MDRDstudy equation, which assumes a steadystate for creatinine. Est. GFR should notbe used for medication dosing. ID Date Data Source [id number] 04/13/2020 06:10:42 PM EDT [facility] Name Value Range Interpretation Code Description Data Camila rce(s) Supporting Document(s) WBC 12.4 10*3/uL (4.1-11.0) H [facility] [place] RBC 3.42 10*6/uL (4.00-5.40) L [facility] [place] HGB 9.9 g/dL (12.0-16.0) L [facility] [place] HCT 29.6 % (36.0-47.0) L [facility] MCV 86.4 fL (80.0-95.0) [facility] MCH 28.9 pg (27.0-32.0) [facility] [place] MCHC 33.5 g/dL (32.0-36.0) [facility] [place] RDW 13.5 % (10.5-14.5) [facility] PLT 237 10*3/uL (150-450) [facility] MPV 8.7 fL (7.1-10.7) [facility] [place] ID Date Data Source [id number] 04/13/2020 08:33:02 AM EDT [facility] Name Value Range Interpretation Code Description Data Camila rce(s) Supporting Document(s) MAGNESIUM 4.5 mg/dL (1.7-2.4) HH [facility] [place] CONSISTENT WITH PREVIOUS RESULTS ID Date Data Source [id number] 04/13/2020 06:15:59 AM EDT [facility] Name Value Range Interpretation Code Description Data Camila rce(s) Supporting Document(s) SODIUM 136 mmol/L (136-145) [facility] POTASSIUM 3.9 mmol/L (3.6-5.2) [facility] CHLORIDE 105 mmol/L (100-108) [facility] CO2 25 mmol/L (22-31) [facility] ANION GAP 6 mmol/L (7-16) L [facility] UREA NITROGEN 4 mg/dL (7-24) L [facility] [place] CREATININE 0.47 mg/dL (0.60-1.00) L [facility] BUN/CREAT RATIO 8.5 RATIO (10.0-20.0) L [facility] [place] GLUCOSE 140 mg/dL (70-99) H [facility] [place] CALCIUM 7.1 mg/dL (8.4-10.2) L [facility] TOTAL PROTEIN 6.2 g/dL (6.4-8.2) L [facility] [place] ALBUMIN 2.4 g/dL (3.5-4.6) L [facility] [place] GLOBULIN 3.8 g/dL (2.7-4.3) [facility] ALB/GLOB RATIO 0.6 RATIO [facility] [place] ALKALINE PHOSPHATASE 186 U/L (45-117) [facility] BILIRUBIN,TOTAL 0.5 mg/dL (0.0-1.0) [facility] [place] PLEASE NOTE:Total bilirubin results may be falselyelevated in patients taking Eltrombopag. AST (SGOT) 107 U/L (11-39) H [facility] [place] ALT (SGPT) 240 U/L (12-78) H [facility] GFR >60 ml/min/1.73m2 (>59) [facility] GFR ( AMER) >60 ml/min/1.73m2 (>59) [facility] GFR INTERPRETATION [facility] --NORMAL KIDNEY FUNCTION OR MILD DISEASE - GFR >OR= 60CHRONIC KIDNEY DISEASE - GFR 15 - 59RENAL FAILURE - GFR <15 Est. GFR calculation based on the MDRDstudy equation, which assumes a steadystate for creatinine. Est. GFR should notbe used for medication dosing. ID Date Data Source [id number] 04/13/2020 06:15:59 AM EDT [facility] Name Value Range Interpretation Code Description Data Camila rce(s) Supporting Document(s) LDH 176 U/L (84-246) [facility] ID Date Data Source [id number] 04/13/2020 06:15:59 AM EDT [facility] Name Value Range Interpretation Code Description Data Camila rce(s) Supporting Document(s) URIC ACID 3.3 mg/dL (2.6-6.0) [facility] ID Date Data Source [id number] 04/13/2020 05:46:23 AM EDT [facility] Name Value Range Interpretation Code Description Data Camila rce(s) Supporting Document(s) WBC 10.7 10*3/uL (4.1-11.0) [facility] RBC 3.62 10*6/uL (4.00-5.40) L [facility] [place] HGB 10.5 g/dL (12.0-16.0) L [facility] HCT 31.4 % (36.0-47.0) L [facility] [place] PER[facility] AT [address] [facility] [address] MCV 86.7 fL (80.0-95.0) [facility] [place] MCH 29.1 pg (27.0-32.0) [facility] MCHC 33.5 g/dL (32.0-36.0) [facility] RDW 13.1 % (10.5-14.5) [facility] PLT 232 10*3/uL (150-450) [facility] MPV 8.6 fL (7.1-10.7) [facility] ID Date Data Source [id number] 04/12/2020 08:13:13 PM EDT [facility] Name Value Range Interpretation Code Description Data Camila rce(s) Supporting Document(s) LDH 167 U/L (84-246) [facility] ID Date Data Source [id number] 04/12/2020 08:13:13 PM EDT [facility] Name Value Range Interpretation Code Description Data Camila rce(s) Supporting Document(s) URIC ACID 3.1 mg/dL (2.6-6.0) [facility] ID Date Data Source [id number] 04/12/2020 08:13:13 PM EDT [facility] Name Value Range Interpretation Code Description Data Camila rce(s) Supporting Document(s) MAGNESIUM 4.1 mg/dL (1.7-2.4) [facility] RESULT(S) CALLED TO AND READ BACK BYDEB L&D AT 2011 [id number]. ID Date Data Source [id number] 04/12/2020 08:13:13 PM EDT [facility] Name Value Range Interpretation Code Description Data Camila rce(s) Supporting Document(s) SODIUM 139 mmol/L (136-145) [facility] POTASSIUM 3.4 mmol/L (3.6-5.2) L [facility] CHLORIDE 107 mmol/L (100-108) [facility] CO2 25 mmol/L (22-31) [facility] ANION GAP 7 mmol/L (7-16) [facility] UREA NITROGEN 4 mg/dL (7-24) L [facility] CREATININE 0.63 mg/dL (0.60-1.00) [facility] BUN/CREAT RATIO 6.3 RATIO (10.0-20.0) L [facility] GLUCOSE 133 mg/dL (70-99) H [facility] CALCIUM 7.3 mg/dL (8.4-10.2) L [facility] TOTAL PROTEIN 6.4 g/dL (6.4-8.2) [facility] ALBUMIN 2.5 g/dL (3.5-4.6) L [facility] GLOBULIN 3.9 g/dL (2.7-4.3) [facility] ALB/GLOB RATIO 0.6 RATIO [facility] ALKALINE PHOSPHATASE 196 U/L (45-117) [facility] BILIRUBIN,TOTAL 0.4 mg/dL (0.0-1.0) [facility] [place] PLEASE NOTE:Total bilirubin results may be falselyelevated in patients taking Eltrombopag. AST (SGOT) 87 U/L (11-39) H [facility] ALT (SGPT) 203 U/L (12-78) [facility] GFR >60 ml/min/1.73m2 (>59) [facility] GFR ( AMER) >60 ml/min/1.73m2 (>59) [facility] GFR INTERPRETATION [facility] --NORMAL KIDNEY FUNCTION OR MILD DISEASE - GFR >OR= 60CHRONIC KIDNEY DISEASE - GFR 15 - 59RENAL FAILURE - GFR <15 Est. GFR calculation based on the MDRDstudy equation, which assumes a steadystate for creatinine. Est. GFR should notbe used for medication dosing. ID Date Data Source [id number] 04/12/2020 06:57:38 PM EDT [facility] Name Value Range Interpretation Code Description Data Camila rce(s) Supporting Document(s) WBC 8.6 10*3/uL (4.1-11.0) [facility] [place] [place] RBC 3.81 10*6/uL (4.00-5.40) L [facility] HGB 11.2 g/dL (12.0-16.0) L [facility] HCT 32.8 % (36.0-47.0) L [facility] PERFORMED AT [address] [facility] [address] MCV 86.1 fL (80.0-95.0) [facility] MCH 29.3 pg (27.0-32.0) [facility] MCHC 34.0 g/dL (32.0-36.0) [facility] RDW 12.8 % (10.5-14.5) [facility] PLT 255 10*3/uL (150-450) [facility] MPV 8.5 fL (7.1-10.7) [facility] ID Date Data Source [id number] 04/12/2020 08:40:47 AM EDT [facility] Name Value Range Interpretation Code Description Data Camila rce(s) Supporting Document(s) URIC ACID 3.7 mg/dL (2.6-6.0) [facility] ID Date Data Source [id number] 04/12/2020 08:40:47 AM EDT [facility] Name Value Range Interpretation Code Description Data Camila rce(s) Supporting Document(s) LDH 171 U/L (84-246) [facility] ID Date Data Source [id number] 04/12/2020 08:40:47 AM EDT [facility] Name Value Range Interpretation Code Description Data Camila rce(s) Supporting Document(s) SODIUM 138 mmol/L (136-145) [facility] POTASSIUM 4.1 mmol/L (3.6-5.2) [facility] CHLORIDE 108 mmol/L (100-108) [facility] CO2 22 mmol/L (22-31) [facility] ANION GAP 8 mmol/L (7-16) [facility] UREA NITROGEN 7 mg/dL (7-24) [facility] CREATININE 0.52 mg/dL (0.60-1.00) L [facility] BUN/CREAT RATIO 13.5 RATIO (10.0-20.0) [facility] GLUCOSE 140 mg/dL (70-99) H [facility] CALCIUM 8.6 mg/dL (8.4-10.2) [facility] TOTAL PROTEIN 6.5 g/dL (6.4-8.2) [facility] ALBUMIN 2.5 g/dL (3.5-4.6) L [facility] GLOBULIN 4.0 g/dL (2.7-4.3) [facility] ALB/GLOB RATIO 0.6 RATIO [facility] ALKALINE PHOSPHATASE 207 U/L (45-117) H [facility] BILIRUBIN,TOTAL 0.6 mg/dL (0.0-1.0) [facility] PLEASE NOTE:Total bilirubin results may be falselyelevated in patients taking Eltrombopag. AST (SGOT) 75 U/L (11-39) H [facility] ALT (SGPT) 170 U/L (12-78) H [facility] GFR >60 ml/min/1.73m2 (>59) [facility] GFR ( AMER) >60 ml/min/1.73m2 (>59) [facility] GFR INTERPRETATION [facility] --NORMAL KIDNEY FUNCTION OR MILD DISEASE - GFR >OR= 60CHRONIC KIDNEY DISEASE - GFR 15 - 59RENAL FAILURE - GFR <15 Est. GFR calculation based on the MDRDstudy equation, which assumes a steadystate for creatinine. Est. GFR should notbe used for medication dosing. ID Date Data Source [id number] 04/12/2020 06:58:26 AM EDT [facility] Name Value Range Interpretation Code Description Data Camila rce(s) Supporting Document(s) WBC 8.8 10*3/uL (4.1-11.0) [facility] [place] RBC 3.85 10*6/uL (4.00-5.40) L [facility] HGB 11.2 g/dL (12.0-16.0) L [facility] HCT 32.9 % (36.0-47.0) L [facility] PERFORMED AT [address] [facility] [address] MCV 85.5 fL (80.0-95.0) [facility] Amee Shields MCH 29.2 pg (27.0-32.0) [facility] Amee Shields MCHC 34.1 g/dL (32.0-36.0) [facility] Amee Shields RDW 13.1 % (10.5-14.5) [facility] Amee Shields PLT 242 10*3/uL (150-450) [facility] Amee Shields MPV 9.0 fL (7.1-10.7) [facility] [place] ID Date Data Source [id number] 04/13/2020 10:03:30 AM EDT [facility] [place] SPECIMEN DESCRIPTION VAGINAL/RECT ALCULTURE RESULTS NEGATIVE: BETA HEMOLYTIC STREPTOCOCCI GROUP B B Y PCRREPORT STATUS FINAL 04/13/2020 Name Value Range Interpretation Code Description Data Camila rce(s) Supporting Document(s) ID Date Data Source [id number] 04/12/2020 12:15:00 AM EDT [facility] [place] Name Value Range Interpretation Code Description Data Camila rce(s) Supporting Document(s) SARS coronavirus 2 RNA [Presence] in Res piratory specimen by SOFI with probe detection [facility] This lab was reported by [facility]. ID Date Data Source [id number] 04/12/2020 08:30:59 AM EDT [facility] thania DENNEY Name Value Range Interpretation Code Description Data Camila rce(s) Supporting Document(s) SPECIMEN DESCRIPTION [facility] [place] COVID19 RESULT (NDET) [facility] THIS ASSAY AMPLIFIES AND DETECTSTHE TARG ET RNA USING REAL-TIME PCR.NEGATIVE 2019_NCOV RT-PCR RESULTS DONOT PRECLUDE 2019_NCOV INFECTION ANDSHOULD NOT BE USED THE SOLE BASISFOR PATIENT MANAGEMENT DECISIONS. COMMENT [facility] B Y [facility] THE [place] FOODAND DRUG ADMINISTRATION HAS NOT APPROVEDTHIS TEST. NEGATIVE RESULTS DO NOT [id number] INFECTION AND SHOULD NOT BEUSED THE SOLE BASIS FOR CLINICALDIAGNOSIS OR PATIENT MANAGEMENT DECISIONS.RESULT EMAILED TO [facility] AT 0168 ON 04/12/20 [id number]. FIRST TEST [facility] SYMPTOMATIC [facility] DATE OF SYMPT ONSET [facility] H[facility]PITALIZED [facility] [place] ICU [facility] [place] CONGREGATE CARE SET [facility] [place] ID Date Data Source [id number] 04/12/2020 09:36:00 AM EDT [facility] DATE OF EXAM: 04/12/2020EXAM: OBSTETRICA [...] positioning. K9End of diagnostic report for accession: [id number] Interpreted: Lawrence Paul MDTranscribed: 04/12/2020 09:32 AMSigned: 04/12/2020 09:36 AM Lawrence Paul MD N: [id number] [facility] # [id number] BILL # [id number] Name Value Range Interpretation Code Description Data Camila rce(s) Supporting Document(s) ID Date Data Source [id number] 04/12/2020 12:24:48 AM EDT [facility] Name Value Range Interpretation Code Description Data Camila rce(s) Supporting Document(s) HIV RAPID SCR PRELIM (NEG) [facility] [place] Final Result ID Date Data Source [id number] 04/12/2020 12:52:42 AM EDT [facility] [place] SPEC EXP DATE 04/14/2020PATI ENT ABO/Rh AB POSITIVEANTIBODY SCREEN NEGATIVETESTING SITE PERFORMED AT [address] [facility] [address] Name Value Range Interpretation Code Description Data Camila rce(s) Supporting Document(s) TYPE AND SCREEN [facility]/Rh AB POSITIVE ID Date Data Source [id number] 04/13/2020 03:09:10 PM EDT [facility] Name Value Range Interpretation Code Description Data Camila rce(s) Supporting Document(s) SPECIMEN DESCRIPTION [facility] N. GONORRHOEAE (NEG) [facility] THIS ASSAY AMPLIFIES AND DETECTS TARGETD NA USING FABRICATOR ARTIFICIAL BREAST-MEDIATEDAMPLIFICATION ID Date Data Source [id number] 04/12/2020 12:01:03 AM EDT [facility] SPECIMEN DESCRIPTION VAGINAL SPEC IMENRESULT NEGATIVE FOR TRICHOMONAS VAGINALIS BY DNA PROBE NEGATIVE FOR GAIL SPECIES BY DNA PROBE POSITIVE FOR GARDNERELLA VAGINALIS BY DNA PROBEPERFORMED AT [address] [place] [address] REPORT STATUS FINAL 04/12/2020 Name Value Range Interpretation Code Description Data Camila rce(s) Supporting Document(s) ID Date Data Source [id number] 04/17/2020 03:57:04 PM EDT [facility] Name Value Range Interpretation Code Description Data Camila rce(s) Supporting Document(s) CHOLIC ACID 17.1 H [facility] Reference range: 0.0 to 1.9Unit: umol/L DEOXYCHOLIC ACID 5.5 H [facility] Reference range: 0.0 to 2.5Unit: umol/L CHENODEOXYCHOLIC AC 8.4 H [facility] [place] Reference range: 0.0 to 3.4Unit: umol/L URSODEOXYCHOLIC ACID 0.3 uM [facility] [place] Reference range: 0.0 to 1.0Unit: umol/L TOTAL BILE ACIDS 31.3 H [facility] [place] Reference range: 0.0 to 7.0Unit: umol/L INTERPRETIVE INFORMATION: Bile Acids, Fractionated and Total Test developed and characteristics determined by [employer]. See Compliance Statement B: [employer] Performed By: [employer] [address] [place] [id number] Integration Engineer: Gilda Silvestre MD ID Date Data Source [id number] 04/15/2020 02:06:32 PM EDT [facility] Name [...] the amount of antibody present. Performed By: [employer] [address] [place] [id number] Integration Engineer: Gilda Silvestre MD ID Date Data Source [id number] 04/13/2020 12:40:04 PM EDT [facility] Name Value Range Interpretation Code Description Data Camila rce(s) Supporting Document(s) RUBELLA IGG AB @ [facility] IgG antibody to Rubella detected. IgGan tibody levels are at a level consideredto indicate positive immunity. ID Date Data Source [id number] 04/13/2020 11:30:10 AM EDT [facility] Name Value Range Interpretation Code Description Data Camila rce(s) Supporting Document(s) TREPONEMA IGG/IGM @ (NEG) [facility] ID Date Data Source [id number] 04/13/2020 08:59:59 AM EDT [facility] SPECIMEN DESCRIPTION URINE, COLLE CTION METHOD NOT SPECIFIEDCULTURE RESULTS MIXED UROGENITAL MACEY; PLEASE SUBMIT A NEW SPEC IMEN IF CLINICALLY INDICATED.REPORT STATUS FINAL 04/13/2020 Name Value Range Interpretation Code Description Data Camila rce(s) Supporting Document(s) ID Date Data Source [id number] 04/11/2020 11:27:11 PM EDT [facility] Name Value Range Interpretation Code Description Data Camila rce(s) Supporting Document(s) URINE WBC (0-5) [facility] URINE RBC (0-2) [facility] EPITHELIAL CELLS 1+ [HPF] [facility] BACTERIA 1+ [HPF] [facility] ID Date Data Source [id number] 04/11/2020 10:36:15 PM EDT [facility] Name Value Range Interpretation Code Description Data Camila rce(s) Supporting Document(s) COLOR [facility] PERFORMED AT [address] [place] [address] APPEARANCE [facility] SPEC GRAV URINE 1.009 (1.003-1.030) [facility] PH URINE 7.0 (5.0-7.5) [facility] LEUK ESTERASE 1+ (NEG) A [facility] NITRITE URINE (NEG) [facility] PROTEIN URINE (NEG) [facility] GLUCOSE URINE (NEG) [facility] KETONE URINE (NEG) [facility] [place] UROBILINOGEN 1.0 mg/dL (0-1.0) [facility] [place] BILIRUBIN URINE (NEG) [facility] BLOOD/HGB URINE (NEG) [facility] ID Date Data Source [id number] 04/11/2020 10:31:55 PM EDT [facility] Name Value Range Interpretation Code Description Data Camila rce(s) Supporting Document(s) URIC ACID 3.2 mg/dL (2.6-6.0) [facility] ID Date Data Source [id number] 04/11/2020 10:31:55 PM EDT [facility] Name Value Range Interpretation Code Description Data Camila rce(s) Supporting Document(s) SODIUM 140 mmol/L (136-145) [facility] POTASSIUM 3.8 mmol/L (3.6-5.2) [facility] CHLORIDE 107 mmol/L (100-108) [facility] CO2 24 mmol/L (22-31) [facility] ANION GAP 9 mmol/L (7-16) [facility] UREA NITROGEN 5 mg/dL (7-24) L [facility] CREATININE 0.48 mg/dL (0.60-1.00) L [facility] BUN/CREAT RATIO 10.4 RATIO (10.0-20.0) [facility] GLUCOSE 106 mg/dL (70-99) H [facility] CALCIUM 8.1 mg/dL (8.4-10.2) L [facility] TOTAL PROTEIN 6.5 g/dL (6.4-8.2) [facility] ALBUMIN 2.5 g/dL (3.5-4.6) L [facility] GLOBULIN 4.0 g/dL (2.7-4.3) [facility] ALB/GLOB RATIO 0.6 RATIO [facility] ALKALINE PHOSPHATASE 190 U/L (45-117) H [facility] BILIRUBIN,TOTAL 0.5 mg/dL (0.0-1.0) [facility] PLEASE NOTE:Total bilirubin results may be falselyelevated in patients taking Eltrombopag. AST (SGOT) 67 U/L (11-39) H [facility] ALT (SGPT) 151 U/L (12-78) H [facility] GFR >60 ml/min/1.73m2 (>59) [facility] GFR ( AMER) >60 ml/min/1.73m2 (>59) [facility] GFR INTERPRETATION [facility] --NORMAL KIDNEY FUNCTION OR MILD DISEASE - GFR >OR= 60CHRONIC KIDNEY DISEASE - GFR 15 - 59RENAL FAILURE - GFR <15 Est. GFR calculation based on the MDRDstudy equation, which assumes a steadystate for creatinine. Est. GFR should notbe used for medication dosing. ID Date Data Source [id number] 04/11/2020 10:31:55 PM EDT [facility] [place] Name Value Range Interpretation Code Description Data Camila rce(s) Supporting Document(s) LDH 153 U/L (84-246) [facility] ID Date Data Source [id number] 04/11/2020 09:52:29 PM EDT [facility] Name Value Range Interpretation Code Description Data Camila rce(s) Supporting Document(s) PROTEIN,URINE 14 mg/dL [facility] URINE PROTEIN MAY BE FALSELY ELEVATEDDUR ING TREATMENT WITH AMINOGLYCOSIDESDUE TO METHOD INTERFERENCE. CREATININE,URINE 41.90 mg/dL [facility] URINE TP/CR RATIO 0.33 RATIO (0.00-0.20) H [facility] ID Date Data Source [id number] 04/11/2020 09:34:46 PM EDT [facility] Name Value Range Interpretation Code Description Data Camila rce(s) Supporting Document(s) WBC 7.6 10*3/uL (4.1-11.0) [facility] [place] RBC 3.80 10*6/uL (4.00-5.40) L [facility] HGB 11.0 g/dL (12.0-16.0) L [facility] HCT 32.8 % (36.0-47.0) L [facility] PERFORMED [facility] [address] [place] [address] MCV 86.3 fL (80.0-95.0) [facility] MCH 29.1 pg (27.0-32.0) [facility] MCHC 33.7 g/dL (32.0-36.0) [facility] RDW 13.1 % (10.5-14.5) [facility] PLT 254 10*3/uL (150-450) [facility] MPV 8.9 fL (7.1-10.7) [facility] ID Date Data Source Type and Screen (D Rh Antibody Screen) 04/08/2020 01:04:46 P M EDT eCW1 ([facility]) Name Value Range Interpretation Code Description Data Camila rce(s) Supporting Document(s) NEGATIVE eCW1 ([facility]) AB POSITIVE eCW1 ([facility]) ID Date Data Source CBC - Complete Blood Count 04/08/2020 01:04:33 PM EDT eCW1 ( [facility]) Name Value Range Interpretation Code Description Data Camila rce(s) Supporting Document(s) 3.45 RED BLOOD COUNT eCW1 ([facility]) 10.3 HEMOGLOBIN eCW1 ([facility]) 8.0 WHITE BLOOD COUNT eCW1 ([facility]) 33.3 MEAN CORPUSCULAR HGB CONC eCW1 ([facility]) 30.9 HEMATOCRIT eCW1 ([facility]) 29.9 MEAN CORPUSCULAR HEMOGLOBIN eC W1 ([facility]) 89.6 MEAN CORPUSCULAR VOLUME eCW1 ( [facility]) 12.3 RED CELL DISTRIBUTION WIDTH eC W1 ([facility]) 221 PLATELET COUNT, AUTOMATED eCW1 ([facility]) ID Date Data Source Glucose Challenge Test 1 Hour 04/08/2020 01:04:26 PM EDT eCW 1 ([facility]) Name Value Range Interpretation Code Description Data Camila rce(s) Supporting Document(s) 130 eCW1 ([facility]) ID Date Data Source [id number] 04/10/2020 07:33:00 AM EDT [facility] Name Value Range Interpretation Code Description Data Camila rce(s) Supporting Document(s) Bile acid [Moles/volume] in Serum 24.4 umol/L 0.0-10.0 H [facility] ID Date Data Source [id number] 04/06/2020 03:43:00 PM EDT [facility] Name Value Range Interpretation Code Description Data Camila rce(s) Supporting Document(s) CBC W/AUTOMATED DIFF [facility] COMPLETE BLOOD COUNT Leukocytes [#/volume] in Blood by Automated count 6.0 10^3/uL 4.2 - 1 1.0 [facility] Erythrocytes [#/volume] in Blood by Automated count 3.62 10^6/uL 4. 20 - 5.40 L [facility] Hemoglobin [Mass/volume] in Blood 10.3 g/dL 12.0 - 16.0 L [facility] Hematocrit [Volume Fraction] of Blood by Automated count 31.2 % 3 7.0 - 47.0 L [facility] Erythrocyte mean corpuscular volume [Entitic volume] by Auto mated count 86.2 fL 81.0 - 101 [facility] Erythrocyte mean corpuscular hemoglobin [Entitic mass] by Automated count 28.5 pg 27.0 - 34.0 [facility] Erythrocyte mean corpuscular hemoglobin concentration [Mass/volume] by Automated count 33.0 g/dL 31.0 - 36.0 [facility] Erythrocyte distribution width [Ratio] by Automated count 12.3 % 11.5 - 14.5 [facility] Platelets [#/volume] in Blood by Automated count 230 10^3/uL 150 - 45 0 [facility] Platelet mean volume [Entitic volume] in Blood by Automated count 10.5 fL 7.4 - 10.4 H [facility] Neutrophils/100 leukocytes in Blood by Automated count 72.2 % 37. 0 - 80.0 [facility] Lymphocytes/100 leukocytes in Blood by Manual count 19.6 % 25.0 - 40.0 L [facility] Monocytes/100 leukocytes in Blood by Automated count 6.2 % 3.0 - 8.0 [facility] Eosinophils/100 leukocytes in Blood by Automated count 1.5 % 0.0 - 7.0 [facility] Basophils/100 leukocytes in Blood by Automated count 0.2 % 0.0 - 2.5 [facility] %IG 0.3 % 0.0 - 0.0 H [facility] %NRBC 0.0 % 0.0 - 0.0 [facility] [#/volume] in Blood by Automated count 4.32 10^3/uL 2.00 - 6.90 [facility] Lymphocytes [#/volume] in Blood by Automated count 1.17 10^3/uL 0.60 - 3.40 [facility] Monocytes [#/volume] in Blood by Automated count 0.37 10^3/uL 0.00 - 0.90 [facility] Eosinophils [#/volume] in Blood by Automated count 0.09 10^3/uL 0.00 - 0.70 [facility] Basophils [#/volume] in Blood by Automated count 0.01 10^3/uL 0.00 - 0.20 [facility] #IG 0.02 10^3/uL 0.00 - 0.10 [facility] #NRBC 0.00 10^3/uL 0.00 - 0.00 [facility] MANUAL DIFF NOT INDICATED [facility] RBC MORPH NOT INDICATED [facility] ID Date Data Source [id number] 04/06/2020 03:02:00 PM EDT [facility] Name Value Range Interpretation Code Description Data Camila rce(s) Supporting Document(s) Urate [Mass/volume] in Serum or Plasma 3.4 MG/DL 2.5 - 8.5 [facility] ID Date Data Source [id number] 04/06/2020 03:02:00 PM EDT [facility] Name Value Range Interpretation Code Description Data Camila rce(s) Supporting Document(s) COMPREHENSIVE METABOLIC PANEL [facility] COMPREHENSIVE METABOLIC PANEL Sodium [Moles/volume] in Serum or Plasma 136 mEq/L 134 - 153 [facility] Potassium [Moles/volume] in Serum or Plasma 3.7 mEq/L 3.6 - 5.0 [facility] Chloride [Moles/volume] in Serum or Plasma 103 mEq/L 98 - 107 [facility] Carbon dioxide, total [Moles/volume] in Serum or Plasma 23 MEQ/L 22 - 30 [facility] Glucose [Mass/volume] in Serum or Plasma 92 MG/DL 65 - 110 [facility] BUN 5 MG/DL 7 - 21 L [facility] Creatinine [Mass/volume] in Serum or Plasma 0.4 MG/DL 0.7 - 1.5 L [facility] BUN/CREAT 13 8 - 27 [facility] Protein [Mass/volume] in Serum or Plasma 6.0 G/DL 6.3 - 8.2 L [facility] Albumin [Mass/volume] in Serum or Plasma 3.4 G/DL 3.9 - 5.0 L [facility] Globulin [Mass/volume] in Serum by calculation 2.6 GM/DL 2.4 - 3.2 [facility] A/G RATIO 1.3 0.8 - 2.0 [facility] Calcium [Mass/volume] in Serum or Plasma 8.9 MG/DL 8.4 - 10.2 [facility] Bilirubin.total [Mass/volume] in Serum or Plasma <0.7 MG/DL 0.2 - 1.3 [facility] Alkaline phosphatase [Enzymatic activity/volume] in Serum or Plasma 168 U/L 38 - 126 H [facility] Aspartate aminotransferase [Enzymatic activity/volume] in Serum or Plasma 33 U/L 5 - 40 [facility] Alanine aminotransferase [Enzymatic activity/volume] in Seru m or Plasma 46 U/L 7 - 56 [facility] Anion gap 3 in Serum or Plasma 10.0 mmol/L 8.0 - 16.0 [facility] AGE 24 yrs [facility] al NON-AA GFR >60 mL/min [facility] AFR AMER GFR >60 mL/min [facility] Male GFR In terprentation [...] >32 mL/min Normal ID Date Data Source [id number] 04/06/2020 03:02:00 PM EDT [facility] Name Value Range Interpretation Code Description Data Camila rce(s) Supporting Document(s) Bilirubin.direct [Mass/volume] in Serum or Plasma <0.2 MG/DL 0.1 - 0. 4 [facility] ID Date Data Source [id number] 04/06/2020 03:02:00 PM EDT [facility] Name Value Range Interpretation Code Description Data Camila rce(s) Supporting Document(s) Lactate dehydrogenase [Enzymatic activity/volume] in Serum o r Plasma 149 U/L 135 - 214 [facility] ID Date Data Source [id number] 04/06/2020 03:00:00 PM T [facility] Name Value Range Interpretation Code Description Data Camila rce(s) Supporting Document(s) Protein [Mass/volume] in Urine by Test strip 12 mg/dL 0 - 20 [facility] T ID Date Data Source [id number] 04/06/2020 02:46:00 PM EDT [facility] Name Value Range Interpretation Code Description Data Camila rce(s) Supporting Document(s) Prothrombin time (PT) 13.2 SECONDS 11.0 - 15.5 [facility] INR in Platelet poor plasma by Coagulation assay 0.99 0.93 - 1. 23 [facility] aPTT in Blood by Coagulation assay 24.6 SECONDS 24.8 - 36.7 L [facility] \\BLDo\\INR INTERPRETATION\\BLDx\\ Therapeutic range for Coumadin and related oral anticoagulants. - International Normalized Ratio (INR): 2.0 - 3.0 for Venous Thrombosis, Pulmonary Embolus, Tissue heart valves, Acute GA Atrial Fibrillation, Valvular heart disease and recurrent Systemic Embolism. - International Normalized Ratio (INR): 2.5 - 3.5 for Mechanical Prosthetic valve. ID Date Data Source [id number] 04/06/2020 02:40:00 PM EDT [facility] Name Value Range Interpretation Code Description Data Camila rce(s) Supporting Document(s) CREAT UR 54.2 MG/DL 0.0 - 30.0 H [facility] ID Date Data Source [id number] 04/06/2020 02:34:00 PM EDT [facility] Name Value Range Interpretation Code Description Data Camila rce(s) Supporting Document(s) URINALYSIS [facility]na URINALYSIS SOURCE R [facility] COL[facility] yellow NORMAL: Yellow [facility] CLARITY clear NORMAL: Clear [facility] Specific gravity of Urine by Test strip 1.010 1.001 - 1.030 [facility] pH 7 5 - 9 [facility] al Glucose [Mass/volume] in Urine by Test strip NORM NORMAL: Negat [facility] Bilirubin.total [Presence] in Urine by Test strip NEG NORMAL: Negative [facility] Ketones [Presence] in Urine by Test strip NEG NORMAL: Negative [facility] Protein [Mass/volume] in Urine by Test strip NEG NORMAL: Negat [facility] Nitrite [Presence] in Urine by Test strip NEG NORMAL: Negative [facility] BLOOD 10 NORMAL: Negative [facility] Leukocyte esterase [Presence] in Urine by Test strip 25 DAVE L: Negative [facility] Urobilinogen [Mass/volume] in Urine by Test strip NOR less jane n 1.0 mg/dL [facility] MICROSCOPIC See Below [facility] WBC 0 - 1 NORMAL: NONE SEEN [facility] Bacteria [Presence] in Urine sediment by Light microscopy Tr jamir NORMAL: NONE SEEN [facility] Procedure Social History Code Duration Value Status Description Data Source(s ) Smoking 10/13/2020 12:00:00 AM EDT Never Smoker completed Never S moker eCW1 ([facility]) Smoking 07/13/2020 12:00:00 AM EST Never Smoker completed Never S moker eCW1 ([facility]) Smoking 07/13/2020 12:00:00 AM EST Never Smoker completed Never S moker eCW1 ([facility]) Smoking 04/11/2020 11:33:00 PM EDT Denies Ever Smoked complete d Denies Ever Smoked [facility] Smoking 04/10/2020 12:00:00 AM EDT Never Smoker completed Never S bashirker eCW1 ([facility]) Vital Signs ID Date Data Source UNK Name Value Range Interpretation Code Description Data Source(s) Body temperature 98.1 [degF] 98.1 [degF] MEDENT ([facility]) Body height 64 [in_i] 64 [in_i] eCW1 ([facility]) Body weight 225 [lb_av] 225 [lb_av] eCW1 ([facility]) Body mass index (BMI) [Ratio] 38.62 kg/m2 38.62 kg/m2 W1 ([facility]) Systolic blood pressure 112 mm[Hg] 112 mm[Hg] e CW1 ([facility]) Diastolic blood pressure 62 mm[Hg] 62 mm[Hg] eCW1 ([facility]) Body temperature 98.9 [degF] 98.9 [degF] [facility] ([facility]) Body height 64 [in_i] 64 [in_i] [facility] ([facility]) 5'4" Bow body weight 120 [lb_av] 120 [lb_av] MEDEN T ([facility]) Body weight 231.00 [lb_av] 231.00 [lb_av] MEDEN T ([facility]) Body mass index (BMI) [Ratio] 39.6 kg/m2 39.6 k g/m2 [facility] ([facility]) Bow body weight 120 [lb_av] 120 [lb_av] MEDEN T ([facility]) Body weight 104.782 kg 104.782 kg [facility] ([facility]) Body surface area Derived from formula 2.08 m2 2.08 m2 [facility] ([facility]) Body temperature 97.3 [degF] 97.3 [degF] [facility] ([facility]) Body height 64 [in_i] 64 [in_i] [facility] ([facility] ) 5'4" Body mass index (BMI) [Ratio] 39.13 kg/m2 39.13 kg/m2 eCW1 ([facility]) Body weight 228 [lb_av] 228 [lb_av] W1 ([facility]) Body height 64 [in_i] 64 [in_i] eCW1 ([facility]) Systolic blood pressure 112 mm[Hg] 112 mm[Hg] e CW1 ([facility]) Diastolic blood pressure 62 mm[Hg] 62 mm[Hg] eCW1 ([facility]) Body height 162.1536 cm Normal (applies to non-numeric res ults) 162.1536 cm [facility] Diastolic blood pressure 62 mm[Hg] Normal (applies to non-numeric results) 62 mm[Hg] [facility] Heart rate 51 min Normal (applies to non-numeric resul ts) 51 min [facility] Systolic blood pressure 90 mm[Hg] Normal (applies t o non-numeric results) 90 mm[Hg] [facility] Respiratory rate 18 min Normal (applies to non-numeric results) 18 min [facility] Body temperature 36.8 kamila Normal (applies to non-numeric results) 36.8 kamila [facility] Deprecated Oxygen saturation in Capillary blood by Oximetry 99 % Normal (applies to non-numeric results) 99 % [facility] Body mass index (BMI) [Ratio] 40.17 kg/m2 No rmal (applies to non-numeric results) 40.17 kg/m2 [facility] Body weight Measured 106.141 kg Normal (applies to n on-numeric results) 106.141 kg [facility] ID Date Data Source [id number] 04/10/2020 07:34:06 AM EDT [facility] Name Value Range Interpretation Code Description Data Source(s) WEIGHT RECORDED 234.00 pounds 234.00 pounds [facility] Height 64 Inches 064 Inches [facility] ID Date Data Source [id number] 04/06/2020 02:37:54 PM EDT [facility] Name Value Range Interpretation Code Description Data Source(s) WEIGHT RECORDED 218.00 pounds 218.00 pounds [facility] Height 64 Inches 064 Inches [facility]
[2021-05-09 15:02] VITALS: BP 124/74
== END 2021-05-09 15:09 | disposition home or self-care (01) ==
LOC: M ED 13:35
DX: N30.91 Cystitis, unspecified with hematuria (principal); Z79.899 Other long term (current) drug therapy

== ENCOUNTER → 2022-02-11 | Outpatient (REF) ==
[~2022-02-11] MED LIST changes: +AZO-95TA3 PO; +CEPH500C PO
== END ==
LOC: M LAB 15:13
PROVIDERS: ATTEND Nurse Practitioner Adult Health
DX: Z02.1 Encounter for pre-employment examination (principal)

== ENCOUNTER → 2022-04-22 | Outpatient (REF) | payer OTHER ==
[2022-04-22 17:24] LABS: BASO # 0.1 10^3/uL (0.0-0.2); BASO % 0.7 % (0.0-1.0); EOS # 0.2 10^3/uL (0.0-0.5); EOS % 2.6 % (0.0-3.0); HEMATOCRIT 38.1 % (36.0-47.0); HEMOGLOBIN 12.1 g/dl (12.0-15.5); LYMPH % 26.1 % (24.0-44.0); MEAN CORPUSCULAR HEMOGLOBIN 28.5 pg (27.0-33.0); MEAN CORPUSCULAR HGB CONC 31.8 g/dl (32.0-36.5); MEAN CORPUSCULAR VOLUME 89.6 fl (80.0-96.0); MONO # 0.4 10^3/uL (0.0-0.8); MONO % 5.8 % (2.0-8.0); NEUTROPHILS # 4.9 10^3/uL (1.5-8.5); NEUTROPHILS % 64.5 % (36.0-66.0); PLATELET COUNT, AUTOMATED 365 10^3/uL (150-450); RED BLOOD COUNT 4.25 10^6/uL (4.00-5.40); WHITE BLOOD COUNT 7.6 10^3/uL (4.0-10.0)
[2022-04-22 17:50] LABS: HEMOGLOBIN A1c 5.5 %
[2022-04-22 18:17] LABS: ALBUMIN 3.7 GM/DL (3.2-5.2); ALT/SGPT 46 U/L (12-78); BILIRUBIN,TOTAL 0.3 MG/DL (0.2-1.0); BLOOD UREA NITROGEN 9 MG/DL (7-18); CALCIUM LEVEL 8.9 MG/DL (8.5-10.1); CARBON DIOXIDE LEVEL 28 MEQ/L (21-32); CHLORIDE LEVEL 106 MEQ/L (98-107); CHOLESTEROL LEVEL 190 MG/DL (<200); CHOLESTEROL RISK RATIO 3.166 (<5); CREATININE FOR GFR 0.64 MG/DL (0.55-1.30); FREE T4 0.86 NG/DL (0.76-1.46); GLOMERULAR FILTRATION RATE > 60.0 (>60); GLUCOSE, FASTING 101 MG/DL (70-100); HDL CHOLESTEROL 60 MG/DL (>40); LDL CHOLESTEROL 120 MG/DL (<100); NON-HDL-C 130 MG/DL; POTASSIUM SERUM 4.4 MEQ/L (3.5-5.1); SODIUM LEVEL 140 MEQ/L (136-145); TOTAL PROTEIN 7.6 GM/DL (6.4-8.2); TRIGLYCERIDES LEVEL 51 MG/DL (<150)
[2022-04-22 19:03] LABS: THYROGLOBULIN ANTIBODY 343.2 U/ML (<60.0); THYROID PEROXIDASE ANTIBODY > 1300.0 U/ML (<60.0)
== END ==
LOC: M LAB REF 16:23
PROVIDERS: ATTEND Pediatrics
DX: E66.01 Morbid (severe) obesity due to excess calories (principal); E04.9 Nontoxic goiter, unspecified

== ENCOUNTER → 2022-06-28 | Outpatient (CLI) | payer OTHER | LOC: M SOG 11:02 | PROVIDERS: ATTEND Orthopaedic Surgery | DX: M25.511 Pain in right shoulder (principal) ==

== ENCOUNTER → 2022-07-21 | Outpatient (CLI) | payer OTHER | LOC: M WHC 11:13 | PROVIDERS: ATTEND Pediatrics | DX: N64.4 Mastodynia (principal); E04.9 Nontoxic goiter, unspecified ==

== ENCOUNTER → 2022-08-02 | Outpatient (RCR) | payer OTHER | LOC: M PT 07-07 15:21 | PROVIDERS: ATTEND Orthopaedic Surgery | DX: M67.813 Other specified disorders of tendon, right shoulder (principal) ==

== ENCOUNTER → 2022-08-08 | Outpatient (REF) | payer OTHER ==
[2022-08-08 18:33] LABS: THYROID STIMULATING HORMONE 4.076 uIU/ML (0.55-4.78); TOTAL 25(OH) VITAMIN D 15.3 NG/ML (20.0-100.0)
== END ==
LOC: M LAB REF 17:05
PROVIDERS: ATTEND Pediatrics
DX: E55.9 Vitamin D deficiency, unspecified (principal); E03.8 Other specified hypothyroidism

== ENCOUNTER 2022-08-10 16:45 | Outpatient (RCR) | payer OTHER | END 2022-08-30 | LOC: M PT 16:45 | PROVIDERS: ATTEND Orthopaedic Surgery | DX: M67.813 Other specified disorders of tendon, right shoulder (principal) ==

== ENCOUNTER → 2022-10-20 | Outpatient (CLI) | payer OTHER | LOC: M WHC 13:18 | PROVIDERS: ATTEND Pediatrics | DX: E04.9 Nontoxic goiter, unspecified (principal) ==

== ENCOUNTER → 2022-12-01 | Outpatient (REF) | payer OTHER | LOC: M LAB REF 17:00 | PROVIDERS: ATTEND Pediatrics | DX: E03.8 Other specified hypothyroidism (principal) ==

== ENCOUNTER → 2023-05-17 | Outpatient (REF) | payer OTHER | LOC: M LABWUC 12:09 | PROVIDERS: ATTEND Pediatrics | DX: E03.9 Hypothyroidism, unspecified (principal) ==